=== PATIENT | female | born 1960 | race Caucasian/White ===

== ENCOUNTER → 2019-07-28 | Outpatient (CLI) | payer MEDICAID, SELFPAY | PROVIDERS: Family Provider Family Medicine; Visit Provider Psychiatry & Neurology Child & Adolescent Psychiatry | DX: F33.1 Major depressive disorder, recurrent, moderate (principal); F40.10 Social phobia, unspecified ==

== ENCOUNTER 2019-08-14 14:35 | Outpatient (CLI) | payer MEDICAID, SELFPAY ==
--- NOTE | 2019-08-14 14:47 | MM_ITS ---
WS: [id number] BILATERAL SCREENING DIGITAL MAMMOGRAM WITH CAD HISTORY: SCREENING COMPARISON: 10/25/2012 Bilateral CC and MLO views submitted. Computer aided detection analyzed. Breast composition: The breasts are heterogeneously dense, which may obscure small masses. No suspici ous masses, microcalcifications or architectural distortion. Bilateral scattered calcifications and a symmetries are stable over multiple years. MM/[place] [id number] IMPRESSION: BI-RADS: 2-Benign FOLLOW UP: 1 Year Follow-up
== END 2019-08-14 14:36 | disposition home or self-care (01) ==
LOC: RADSHAW 14:41
DX: Z12.31 Encounter for screening mammogram for malignant neoplasm of breast (principal)
CPT/HCPCS: 77067

== ENCOUNTER → 2019-09-05 11:04 | Outpatient (BNVA) | payer MEDICAID, SELFPAY | PROVIDERS: Visit Provider Nurse Practitioner Psychiatric/Mental Health | DX: F33.1 Major depressive disorder, recurrent, moderate (principal); F41.9 Anxiety disorder, unspecified | CPT/HCPCS: 80307; 99214 ==

== ENCOUNTER → 2019-10-03 10:50 | Outpatient (BNVA) | payer MEDICAID, SELFPAY | PROVIDERS: Visit Provider Nurse Practitioner Psychiatric/Mental Health | DX: F33.1 Major depressive disorder, recurrent, moderate (principal); F41.9 Anxiety disorder, unspecified | CPT/HCPCS: 99213 ==

== ENCOUNTER → 2019-10-13 08:47 | Outpatient (BNVA) | payer MEDICAID, SELFPAY | PROVIDERS: Visit Provider Social Worker Clinical | DX: F41.1 Generalized anxiety disorder (principal); F33.1 Major depressive disorder, recurrent, moderate | CPT/HCPCS: 90834 ==

== ENCOUNTER → 2019-11-03 10:12 | Outpatient (BNVA) | payer MEDICAID, SELFPAY | PROVIDERS: Visit Provider Social Worker Clinical | DX: F33.1 Major depressive disorder, recurrent, moderate (principal); F41.9 Anxiety disorder, unspecified | CPT/HCPCS: 90834 ==

== ENCOUNTER → 2019-11-16 08:36 | Outpatient (BNVA) | payer MEDICAID, SELFPAY | PROVIDERS: Visit Provider Nurse Practitioner Psychiatric/Mental Health | DX: F41.9 Anxiety disorder, unspecified (principal); F33.41 Major depressive disorder, recurrent, in partial remission | CPT/HCPCS: 99212 ==

== ENCOUNTER → 2019-11-30 08:11 | Outpatient (BNVA) | payer MEDICAID, SELFPAY | PROVIDERS: Visit Provider Social Worker Clinical | DX: F33.41 Major depressive disorder, recurrent, in partial remission (principal); F41.9 Anxiety disorder, unspecified | CPT/HCPCS: 90834 ==

== ENCOUNTER → 2019-12-21 08:56 | Outpatient (BNVA) | payer MEDICAID, SELFPAY | PROVIDERS: Visit Provider Social Worker Clinical | DX: F33.41 Major depressive disorder, recurrent, in partial remission (principal); F41.1 Generalized anxiety disorder | CPT/HCPCS: 90834 ==

== ENCOUNTER → 2020-01-08 07:59 | Outpatient (BNVA) | payer MEDICAID, SELFPAY | PROVIDERS: Visit Provider Social Worker Clinical | DX: F33.41 Major depressive disorder, recurrent, in partial remission (principal) | CPT/HCPCS: 90832 ==

== ENCOUNTER → 2020-01-11 07:54 | Outpatient (BNVA) | payer MEDICAID, SELFPAY | PROVIDERS: Visit Provider Nurse Practitioner Psychiatric/Mental Health | DX: F33.41 Major depressive disorder, recurrent, in partial remission (principal); F41.9 Anxiety disorder, unspecified | CPT/HCPCS: 99212 ==

== ENCOUNTER → 2020-01-25 08:02 | Outpatient (BNVA) | payer MEDICAID, SELFPAY | PROVIDERS: Visit Provider Social Worker Clinical | DX: F33.41 Major depressive disorder, recurrent, in partial remission (principal); F41.9 Anxiety disorder, unspecified | CPT/HCPCS: 90834 ==

== ENCOUNTER → 2020-02-08 07:53 | Outpatient (BNVA) | payer MEDICAID, SELFPAY | PROVIDERS: Visit Provider Nurse Practitioner Psychiatric/Mental Health | DX: F33.41 Major depressive disorder, recurrent, in partial remission (principal); F41.9 Anxiety disorder, unspecified | CPT/HCPCS: 99213 ==

== ENCOUNTER → 2020-02-20 08:24 | Outpatient (BNVA) | payer MEDICAID, SELFPAY | PROVIDERS: Visit Provider Social Worker Clinical | DX: F33.1 Major depressive disorder, recurrent, moderate (principal); F41.1 Generalized anxiety disorder; F43.12 Post-traumatic stress disorder, chronic | CPT/HCPCS: 90791 ==

== ENCOUNTER → 2020-03-12 09:27 | Outpatient (BNVA) | payer MEDICAID, SELFPAY | PROVIDERS: Visit Provider Social Worker Clinical | DX: F33.41 Major depressive disorder, recurrent, in partial remission (principal); F41.9 Anxiety disorder, unspecified | CPT/HCPCS: 90834 ==

== ENCOUNTER → 2020-04-04 08:47 | Outpatient (BNVA) | payer MEDICAID, SELFPAY | PROVIDERS: Visit Provider Nurse Practitioner Psychiatric/Mental Health | DX: F33.41 Major depressive disorder, recurrent, in partial remission (principal); F41.9 Anxiety disorder, unspecified | CPT/HCPCS: 99212 ==

== ENCOUNTER → 2020-04-08 09:11 | Outpatient (BNVA) | payer MEDICAID, SELFPAY | PROVIDERS: Visit Provider Social Worker Clinical | DX: F33.41 Major depressive disorder, recurrent, in partial remission (principal); F41.1 Generalized anxiety disorder | CPT/HCPCS: 90834 ==

== ENCOUNTER → 2020-04-29 09:28 | Outpatient (BNVA) | payer MEDICAID, SELFPAY | PROVIDERS: Visit Provider Social Worker Clinical | DX: F33.41 Major depressive disorder, recurrent, in partial remission (principal); F41.9 Anxiety disorder, unspecified | CPT/HCPCS: 90834 ==

== ENCOUNTER → 2020-05-20 08:40 | Outpatient (BNVA) | payer MEDICAID, SELFPAY | PROVIDERS: Visit Provider Social Worker Clinical | DX: F33.1 Major depressive disorder, recurrent, moderate (principal) | CPT/HCPCS: 90834 ==

== ENCOUNTER → 2020-05-30 08:44 | Outpatient (BNVA) | payer MEDICAID, SELFPAY | PROVIDERS: Visit Provider Nurse Practitioner Psychiatric/Mental Health | DX: F33.41 Major depressive disorder, recurrent, in partial remission (principal); F41.1 Generalized anxiety disorder; F33.1 Major depressive disorder, recurrent, moderate | CPT/HCPCS: 99212 ==

== ENCOUNTER → 2020-06-03 08:05 | Outpatient (BNVA) | payer MEDICAID, SELFPAY | PROVIDERS: Visit Provider Social Worker Clinical | DX: F33.1 Major depressive disorder, recurrent, moderate (principal) | CPT/HCPCS: 90834 ==

== ENCOUNTER → 2020-06-17 08:11 | Outpatient (BNVA) | payer MEDICAID, SELFPAY | PROVIDERS: Visit Provider Social Worker Clinical | DX: F33.41 Major depressive disorder, recurrent, in partial remission (principal); F41.9 Anxiety disorder, unspecified; F43.12 Post-traumatic stress disorder, chronic | CPT/HCPCS: 90834 ==

== ENCOUNTER → 2020-07-18 08:24 | Outpatient (BNVA) | payer MEDICAID, SELFPAY | PROVIDERS: Visit Provider Nurse Practitioner Psychiatric/Mental Health | DX: F33.41 Major depressive disorder, recurrent, in partial remission (principal); F41.9 Anxiety disorder, unspecified | CPT/HCPCS: 99212 ==

== ENCOUNTER → 2020-08-20 08:55 | Outpatient (BNVA) | payer MEDICAID, SELFPAY | PROVIDERS: Visit Provider Social Worker Clinical | DX: F33.41 Major depressive disorder, recurrent, in partial remission (principal); F41.9 Anxiety disorder, unspecified | CPT/HCPCS: 90834 ==

== ENCOUNTER → 2020-09-03 09:12 | Outpatient (BNVA) | payer MEDICAID, SELFPAY | PROVIDERS: Visit Provider Social Worker Clinical | DX: F33.41 Major depressive disorder, recurrent, in partial remission (principal); F41.9 Anxiety disorder, unspecified | CPT/HCPCS: 90834 ==

== ENCOUNTER → 2020-09-19 08:20 | Outpatient (BNVA) | payer MEDICAID, SELFPAY | PROVIDERS: Visit Provider Social Worker Clinical | DX: F33.41 Major depressive disorder, recurrent, in partial remission (principal); F41.9 Anxiety disorder, unspecified; F43.12 Post-traumatic stress disorder, chronic | CPT/HCPCS: 90834 ==

== ENCOUNTER → 2020-10-10 08:42 | Outpatient (BNVA) | payer MEDICAID, SELFPAY | PROVIDERS: Visit Provider Nurse Practitioner Psychiatric/Mental Health | DX: F33.41 Major depressive disorder, recurrent, in partial remission (principal); F41.9 Anxiety disorder, unspecified | CPT/HCPCS: 90832 ==

== ENCOUNTER 2020-10-26 13:06 | Emergency (ER) | payer MEDICAID, SELFPAY ==
[2020-10-26 13:16] VITALS: BP 115/82; PULSE 68; RESP 14; TEMP 36.2; O2SAT 95; BMI 28.1
--- NOTE | 2020-10-26 13:28 | XRR_ITS ---
PROCEDURE INFORMATION: Exam: XR Right Hand Exam date and time: 10/26/2020 1:40 PM Age: 59 years old Clinical indication: Injury or trauma; Fall; Blunt trauma (contusions or hematomas); Hand; Right; Additional info: Trauma 5th mc TECHNIQUE: Imaging protocol: XR Right hand. Views: 3 or more views. COMPARISON: No relevant prior studies available. FINDINGS: Bones/joints: Horizontal fracture through the base of the 5th metacarpal. Soft tissues: Normal. XR/XR hand RT min 3V* [id number] IMPRESSION: Horizontal fracture through the base of the 5th metacarpal.
--- NOTE | 2020-10-26 13:28 | W.ED.EXTPRO ---
HPI - Extremity Problem General: Chief complaint: Extremity Injury, Upper Stated complaint: Rt hand injury Time Seen by Provider: 10/26/20 13:24 History of Present Illness: HPI Narrative: Patient fell 2 days ago injuring right hand Complaint: extremity pain Onset (ago): day(s) Pain Consistency: constant Location: right and upper extremity Severity scale (1-10): 3 Quality: aching Radiation: none Relieving factors: immobilization Exacerbating factors: range of motion Associated symptoms: Reports no associated symptoms; Deny chest pain, fever(s) or rash Review of Systems Const: Denies: fever(s), chills or body aches Eyes: Denies: change in vision or blurry vision ENMT: Denies: throat pain or nasal congestion Card: Denies: chest pain or dyspnea on exertion Resp: Denies: dyspnea, productive cough or non-productive cough GI: Denies: abdominal pain, nausea or vomiting Musc: Reports: extremity pain (Right hand after fall) Skin/Breast: Denies: rash Neuro: Denies: headache(s) Psych: Denies: anxiety or depression Florian/Lymph: Denies: easy bruising PFS ED PFSH: Medical History (Updated 04/04/20 @ 16:11 by Jovita Polanco APRN) Anxiety disorder Anxiety disorder Chronic anxiety symptoms; uses Lexapro, PRN Valium, and participates in individual psychotherapy. Major depressive disorder, recurrent, in partial remission Social History (Updated 02/08/20 @ 11:12 by Marguerite Saldivar LPN) Smoking and tobacco status: former smoker Quit status (tobacco): has quit using tobacco Year quit tobacco: 1999 Former quit date comment: 1 PPD for 30 years Second hand smoke exposure: No Current gender identity: Female Physical Exam Const: COMMON NORMALS: no acute distress Extremity: RIGHT UPPER EXTREMITY: Yes hand & digits (Bruising tenderness to middle of fifth metacarpal area) Right hand and digits: Yes ROM exam (Good) and Yes neurovascular exam (Intact) Psych: COMMON NORMALS: mental status grossly normal Course Vital Signs: Vital signs: Vital Signs Temperature 97.1 F L 10/26/20 13:16 Pulse Rate 68 10/26/20 13:16 Respiratory Rate 14 10/26/20 13:16 Blood Pressure 115/82 10/26/20 13:16 Pulse Oximetry 95 10/26/20 13:16 Discharge Plan Discharge Condition: Good Prescriptions: No Action levothyroxine 75 mcg capsule 75 mcg PO DAILY RF: 0 metoprolol succinate 25 mg tablet extended release 24 hr 25 mg PO DAILY RF: 0 cyclobenzaprine 5 mg tablet 5 mg PO TID PRNRF: 0 hydrochlorothiazide 12.5 mg tablet 12.5 mg PO DAILY RF: 0 escitalopram oxalate [Lexapro] 20 mg tablet 20 mg PO DAILY Qty: 30 RF: 2 diazepam 5 mg tablet 5 mg PO BID PRN (Reason: anxiety) Qty: 45 RF: 0 trazodone 50 mg tablet 50 mg PO .QHS PRN (Reason: insomnia) Qty: 30 RF: 1 trazodone 100 mg tablet 200 mg PO .QHS Qty: 60 RF: 1 Coding Level of Care Code ED Overhead Crane Technician for Carolyn Jauregui
--- NOTE | 2020-10-28 11:47 | DCPLANNER ---
gardening manager had message to scheduled a follow up appointment for ortho. gardening manager called the clinic, spoke with Enma, gave clinic patients information. gardening manager was told patients information would be printed and reviewed. Clinic will call patient with appointment information.
--- NOTE | 2020-10-30 07:47 | DCPLANNER ---
Patient has a follow up appointment scheduled for October at 11:[address] Bianchi at ortho. Clinic will call patient with appointment information.
--- NOTE | 2020-12-05 09:37 | DCPLANNER ---
Patient had a follow up appointment scheduled for 10.31.[address] Bianchi at [facility] - patient did attend appointment.
== END 2020-10-26 14:18 | disposition home or self-care (01) ==
PROVIDERS: Emergency Provider Nurse Practitioner Family
DX: M79.641 Pain in right hand (principal); Z87.891 Personal history of nicotine dependence
CPT/HCPCS: 73130; 99283

== ENCOUNTER → 2020-10-31 12:10 | Outpatient (BNVA) | payer MEDICAID, SELFPAY | PROVIDERS: Referring Provider Nurse Practitioner Family; Visit Provider Specialist | DX: S62.316D Displaced fracture of base of fifth metacarpal bone, right hand, subsequent encounter for fracture with routine healing (principal); X58.XXXD Exposure to other specified factors, subsequent encounter | CPT/HCPCS: 73130 ==

== ENCOUNTER 2020-10-31 15:45 | Outpatient (CLI) | payer MEDICAID, SELFPAY | END 2020-10-31 15:46 | disposition home or self-care (01) | LOC: SPT 15:46 | PROVIDERS: Visit Provider Specialist | DX: Z46.89 Encounter for fitting and adjustment of other specified devices (principal); S62.316D Displaced fracture of base of fifth metacarpal bone, right hand, subsequent encounter for fracture with routine healing; X58.XXXD Exposure to other specified factors, subsequent encounter | CPT/HCPCS: 97760; L3984 ==

== ENCOUNTER → 2020-11-05 08:28 | Outpatient (BNVA) | payer MEDICAID, SELFPAY | PROVIDERS: Visit Provider Nurse Practitioner Psychiatric/Mental Health | DX: F33.41 Major depressive disorder, recurrent, in partial remission (principal); F41.9 Anxiety disorder, unspecified; F43.12 Post-traumatic stress disorder, chronic | CPT/HCPCS: 99213 ==

== ENCOUNTER → 2020-11-18 11:29 | Outpatient (BNVA) | payer MEDICAID, SELFPAY | PROVIDERS: Visit Provider Specialist | DX: S62.316A Displaced fracture of base of fifth metacarpal bone, right hand, initial encounter for closed fracture (principal); X58.XXXA Exposure to other specified factors, initial encounter | CPT/HCPCS: 73130 ==

== ENCOUNTER → 2020-11-28 08:24 | Outpatient (BNVA) | payer MEDICAID, SELFPAY | PROVIDERS: Visit Provider Social Worker Clinical | DX: F33.41 Major depressive disorder, recurrent, in partial remission (principal); F41.9 Anxiety disorder, unspecified | CPT/HCPCS: 90834 ==

== ENCOUNTER 2020-12-02 13:55 | Outpatient (CLI) | payer MEDICAID, SELFPAY ==
--- NOTE | 2020-12-02 14:19 | XR_ITS ---
WS: [id number] Exam: XR DEXA axial skeleton* [id number] Date/Time of Exam: 12/02/2020 2:19 PM Reason For Exam: POST MENOPAUSAL DEXA BONE DENSITOMETRY [employer] The L1-L4 bone mineral density measures 1.062 g/cm2. This corresponds to a T score of -1.0 and Z scor e of 0.3. Left femoral neck bone mineral density measures 0.697 g/cm2. This corresponds to T score of -2.5 and Z score of -1.5. Right femoral neck bone mineral density measures 0.748 g/cm2. This corresponds to a T score of -2.1 a nd Z score of -1.1. Mean femoral neck bone mineral density measures 0.723 g/cm2. This corresponds to a T score of -2.3 an d Z score of -1.3 XR/XR DEXA axial skeleton* [id number] IMPRESSION: Bone mineral density lies in the osteoporotic range. Refer to detailed summary .
== END 2020-12-02 13:56 | disposition home or self-care (01) ==
DX: Z78.0 Asymptomatic menopausal state (principal)
CPT/HCPCS: 77080

== ENCOUNTER → 2020-12-09 14:11 | Outpatient (BNVA) | payer MEDICAID, SELFPAY | PROVIDERS: Visit Provider Specialist | DX: S62.346A Nondisplaced fracture of base of fifth metacarpal bone, right hand, initial encounter for closed fracture (principal); X58.XXXA Exposure to other specified factors, initial encounter | CPT/HCPCS: 73130 ==

== ENCOUNTER → 2020-12-24 11:38 | Outpatient (BNVA) | payer MEDICAID, SELFPAY | PROVIDERS: Visit Provider Nurse Practitioner Psychiatric/Mental Health | DX: F33.41 Major depressive disorder, recurrent, in partial remission (principal); F41.9 Anxiety disorder, unspecified; F43.12 Post-traumatic stress disorder, chronic; F10.20 Alcohol dependence, uncomplicated | CPT/HCPCS: 99214 ==

== ENCOUNTER → 2021-01-07 13:32 | Outpatient (BNVA) | payer MEDICAID, SELFPAY | PROVIDERS: Visit Provider Social Worker Clinical | DX: F33.41 Major depressive disorder, recurrent, in partial remission (principal) | CPT/HCPCS: 90834 ==

== ENCOUNTER → 2021-01-21 07:46 | Outpatient (BNVA) | payer MEDICAID, SELFPAY | PROVIDERS: Visit Provider Nurse Practitioner Psychiatric/Mental Health | DX: F33.41 Major depressive disorder, recurrent, in partial remission (principal); F41.9 Anxiety disorder, unspecified; F10.20 Alcohol dependence, uncomplicated; F43.12 Post-traumatic stress disorder, chronic | CPT/HCPCS: 99213 ==

== ENCOUNTER → 2021-02-04 11:43 | Outpatient (BNVA) | payer MEDICAID, SELFPAY | PROVIDERS: Visit Provider Social Worker Clinical | DX: F33.41 Major depressive disorder, recurrent, in partial remission (principal); F43.12 Post-traumatic stress disorder, chronic | CPT/HCPCS: 90834 ==

== ENCOUNTER → 2021-03-20 11:13 | Outpatient (BNVA) | payer MEDICAID, SELFPAY | PROVIDERS: Visit Provider Nurse Practitioner Psychiatric/Mental Health | DX: F33.41 Major depressive disorder, recurrent, in partial remission (principal); F43.12 Post-traumatic stress disorder, chronic | CPT/HCPCS: 99213 ==

== ENCOUNTER → 2021-03-24 11:40 | Outpatient (BNVA) | payer MEDICAID, SELFPAY | PROVIDERS: Visit Provider Social Worker Clinical | DX: F33.41 Major depressive disorder, recurrent, in partial remission (principal); F43.12 Post-traumatic stress disorder, chronic | CPT/HCPCS: 90834 ==

== ENCOUNTER → 2021-04-28 10:45 | Outpatient (BNVA) | payer MEDICAID, SELFPAY | PROVIDERS: Visit Provider Social Worker Clinical | DX: F33.41 Major depressive disorder, recurrent, in partial remission (principal); F43.12 Post-traumatic stress disorder, chronic | CPT/HCPCS: 90834 ==

== ENCOUNTER 2021-05-12 09:23 | Outpatient (CLI) | payer MEDICAID, SELFPAY ==
--- NOTE | 2021-05-12 09:29 | US_ITS ---
WS: [id number] ULTRASOUND SOFT TISSUES abdominal wall. HISTORY: RUQ PAIN COMPARISON: None available. TECHNIQUE: 2-D and color Doppler imaging is submitted. Ultrasound is directed to the area of pain in the epigastric area. There is herniation of GI tract t hrough a defect in the abdominal wall in the epigastric region. Defect in the abdominal wall is 2.6 c m there are peristalsing loops of GI tract extending through the abdominal wall musculature. There is no evidence for ischemia by ultrasound. No adjacent fluid. US/US abdomen limited [id number] IMPRESSION: Abdominal wall hernia containing a loop of peristalsing GI tract. No ischemic c hanges identified.
== END 2021-05-12 09:24 | disposition home or self-care (01) ==
LOC: US 09:26
PROVIDERS: PCP Nurse Practitioner Family; Visit Provider Nurse Practitioner Family
DX: R10.11 Right upper quadrant pain (principal); K43.9 Ventral hernia without obstruction or gangrene
CPT/HCPCS: 76705

== ENCOUNTER → 2021-05-22 11:42 | Outpatient (BNVA) | payer MEDICAID, SELFPAY | PROVIDERS: PCP Nurse Practitioner Family; Visit Provider Social Worker Clinical | DX: F33.41 Major depressive disorder, recurrent, in partial remission (principal); F43.12 Post-traumatic stress disorder, chronic; F90.2 Attention-deficit hyperactivity disorder, combined type | CPT/HCPCS: 90834 ==

== ENCOUNTER → 2021-06-03 11:41 | Outpatient (BNVA) | payer MEDICAID, SELFPAY | PROVIDERS: PCP Nurse Practitioner Family; Visit Provider Social Worker Clinical | DX: F33.0 Major depressive disorder, recurrent, mild (principal) | CPT/HCPCS: 90834 ==

== ENCOUNTER → 2021-06-06 14:01 | Outpatient (BNVA) | payer MEDICAID, SELFPAY | PROVIDERS: PCP Nurse Practitioner Family; Visit Provider Surgery | DX: Z11.52 Encounter for screening for COVID-19 (principal); Z20.822 Contact with and (suspected) exposure to COVID-19 | CPT/HCPCS: 87635 ==

== ENCOUNTER 2021-06-08 04:24 | Emergency (ER) | payer MEDICAID, SELFPAY ==
[2021-06-08 04:33] VITALS: BP 125/78; PULSE 62; RESP 18; TEMP 36.7; O2SAT 96
--- NOTE | 2021-06-08 04:39 | ED_ITS ---
HPI - Extremity Problem General: Chief complaint: Extremity Problem,Nontraumatic Stated complaint: Knee Pain Time Seen by Provider: 06/08/21 04:33 History of Present Illness: HPI Narrative: 60-year-old female complaining of right knee pain. She states that she broke her knee in the late 90s, and has had pain on and off since that time. She had a cortisone shot last year which seemed to help some. This morning she awoke with increased pain to the knee, an d could not find a comfortable position in bed. She presents for evaluation. She denies instability. She has had locking. No fever warmth or redness. No calf or thigh pain. MD Complaint: joint pain Onset (ago): hour(s) Pain Consistency: constant Location: right and knee Quality: stabbing and aching Radiation: none Relieving factors: nothing Exacerbating factors: range of motion and weight bearing Associated symptoms: Deny arthralgias, chest pain, fever(s), rash or short of breath Review of Systems Const: Denies: fever(s) Card: Denies: chest pain Skin/Breast: Denies: rash PFSH ED PFSH: Medical History (Updated 06/08/21 @ 05:28 by Tonio Mcneil DO) Anxiety disorder Chronic anxiety symptoms; uses Lexapro, PRN Valium, and participates in individual psychotherapy. Hypertension Major depressive disorder, recurrent, in partial remission Surgical History (Updated 06/11/21 @ 08:26 by Gm Marrero MD) H/O tubal ligation History of ankle surgery Left History of delivery S/P repair of ventral hernia (06/11/21) Status post colonoscopy (06/10/21) Social History Smoking and tobacco status: former smoker Quit status (tobacco): has quit using tobacco Year quit tobacco: 1999 Former quit date comment: 1 PPD for 30 years Second hand smoke exposure: No Current gender identity: Female Physical Exam Const: COMMON NORMALS: no acute distress, patient oriented x3 and alert GENERAL APPEARANCE: cooperative HENMT: COMMON NORMALS: normocephalic HEAD & SCALP: normocephalic Eye: COMMON NORMALS: Equal, round and reactive pupils present and EOMs intact bilaterally PUPIL: Yes Equal, round and reactive pupils present Chest: COMMONS NORMALS: normal inspection of the chest Resp: COMMON NORMALS: normal respiratory effort and No use of accessory muscles Extremity: NARRATIVE EXTREMITY EXAM: Examination of the right lower extremity reveals no edema. There is no knee joint effusion. 2 degrees of extension lag. 100 degrees of flexion. She is tender in the medial joint line and with patellar compression. No deformity. The knee is not warm. Neuro: COMMON NORMALS: patient oriented x3 SENSORIUM/ORIENTATION: Yes alert Course Vital Signs: Vital signs: Vital Signs Temperature 98.1 F 06/08/21 04:33 Pulse Rate 67 06/08/21 05:41 Respiratory Rate 18 06/08/21 05:41 Blood Pressure 115/80 06/08/21 05:41 Pulse Oximetry 96 06/08/21 05:41 MDM - Extremity (Nontraumatic) MDM Narrative: Medical decision making narrative: 60-year-old female with right knee pain. There is no warmth. There is no knee effusion. X-ray reveals osteoarthritic change. No evidence of lower extremity swelling or tenderness otherwise to suspect thrombosis Discharge Plan Discharge Patient Disposition: Home Clinical Impression: Osteoarthritis of right knee Qualifiers: Osteoarthritis type: post-traumatic Qualified Code(s): M17.31 - Unilateral post-traumatic osteoarthritis, right knee Condition: Stable Prescriptions: No Action levothyroxine 75 mcg capsule 75 mcg PO DAILY RF: 0 (DME) Fast Form ulnar gutter See Rx Instructions .ROUTE .MEDSUPPLY Qty: 1 RF: 0 escitalopram oxalate [Lexapro] 20 mg tablet 20 mg PO DAILY Qty: 30 RF: 1 trazodone 100 mg tablet 200 mg PO .QHS PRN (Reason: insomnia) Qty: 60 RF: 1 trazodone 50 mg tablet 50 mg PO .QHS PRN (Reason: insomnia) Qty: 30 RF: 1 metoprolol succinate 25 mg tablet extended release 24 hr 25 mg PO DAILY RF: 0 alendronate 70 mg tablet 70 mg PO DIRECTED RF: 0 famotidine 20 mg tablet 20 mg PO DAILY PRN (Reason: Heartburn) RF: 0 ergocalciferol (vitamin D2) [Vitamin D2] 1,250 mcg (50,000 unit) Capsule 1,250 mcg PO DIRECTED RF: 0 hydrocodone-acetaminophen 5-325 mg tablet 1 tab PO Q6H PRN (Reason: pain) Qty: 20 RF: 0 Zofran 4 mg tablet 4 mg PO Q6H PRN (Reason: nausea and vomiting) Qty: 20 RF: 0 Colace 100 mg capsule 100 mg PO BID Qty: 30 RF: 0 Discharge Orders: Discharge ED (Routine); Ordered 06/08/21 Ordered By: Tonio Mcneil Referrals: Juana Garcia, SWITCHBOARD RECEPTIONIST [Primary Care Provider] - 4-7 days Patient Instructions: Osteoarthritis (ED) Activity Restrictions/Additional Instructions: Return for fever greater than 100, increasing swelling, redness, pain to the knee despite treatment. Return also for any shortness of breath or chest discomfort, or any other concerning symptoms. Follow-up with your doctor later this week. Coding Level of Care Code ED Wastewater Treatment Plant Supervisor for Carolyn Fwd Exam Detailed
--- NOTE | 2021-06-08 04:42 | XRR_ITS ---
PROCEDURE INFORMATION: Exam: XR Right Knee Exam date and time: 06/08/2021 4:42 AM Age: 60 years old Clinical indication: Pain; Knee; Right; Additional info: R knee pain TECHNIQUE: Imaging protocol: XR Right knee. Views: 3 views. COMPARISON: No relevant prior studies available. FINDINGS: Bones/joints: Mild to moderate primary tricompartmental osteoarthritis. Soft tissues: Normal. XR/XR knee RT 3V* [id number] IMPRESSION: Mild to moderate primary tricompartmental osteoarthritis. Radiation Dose CTDIVOL = (mGy): DLP = (mGy-cm)
[2021-06-08 04:49] VITALS: PULSE 78
[2021-06-08] MEDS: ketorolac 10 mg Tablet PO (04:54)
[2021-06-08 04:55] VITALS: RESP 16; O2SAT 99
[2021-06-08] MEDS: oxyCODONE-APAP 5-325 mg Tablet 1 TAB PO (04:55)
[2021-06-08 05:41] VITALS: BP 115/80; PULSE 67; RESP 18; O2SAT 96
== END 2021-06-08 05:42 | disposition home or self-care (01) ==
PROVIDERS: Emergency Provider Emergency Medicine; PCP Nurse Practitioner Family
DX: M17.31 Unilateral post-traumatic osteoarthritis, right knee (principal); Z87.891 Personal history of nicotine dependence; I10 Essential (primary) hypertension
CPT/HCPCS: 73562; 99283

== ENCOUNTER 2021-06-10 07:33 | Day surgery (SDC) | payer MEDICAID, SELFPAY ==
[2021-06-09 10:55] VITALS: BMI 27.3
--- NOTE | 2021-06-10 07:44 | ANES.PREANE2 ---
Pre-Anesthetic Assessment Pre-Anesthetic Assessment: Height/Weight: Height 1.55 m Weight 65.771 kg Preop Diagnosis: screening Proposed Procedure: Operation Date: 06/10/21 09:15 Proposed Procedures p Colonoscopy 38213 Z12.11(Not Applicable) - Gm Marrero MD Familial anesthetic complications: none Was Beta Christopher taken within 24 hours: Yes Was Clonidine taken within 24 hours: N/A Last intake: > 8hrs Social: Social History: No alcohol and No tobacco Exam: Pre-Anes Outpt Exam: alert, oriented x 3, clear to auscultation bilaterally and regular rate & rhythm Airway: Cervical ROM: WNL MP: 2 Dentition: Other (missing teeth) CV/HEM: CV/HEM: HTN GI: GI: GERD Metabolic: Metabolic: Thyroid Anesthetic Plan: ASA status: 2 Anesthesia: MAC Risk of > 500 ml blood loss (7ml/kg in children): No PFSH Anesthesia PFSH: Medical History (Updated 06/08/21 @ 05:28 by Tonio Mcneil DO) Anxiety disorder Chronic anxiety symptoms; uses Lexapro, PRN Valium, and participates in individual psychotherapy. Hypertension Major depressive disorder, recurrent, in partial remission Surgical History (Updated 06/06/21 @ 13:54 by Gm Marrero MD) H/O tubal ligation History of ankle surgery Left History of delivery Status post colonoscopy Social History Smoking and tobacco status: former smoker Quit status (tobacco): has quit using tobacco Year quit tobacco: 1999 Former quit date comment: 1 PPD for 30 years Second hand smoke exposure: No Current gender identity: Female Data Anesthesia Cardiac Studies: No Data to Display
--- NOTE | 2021-06-10 07:59 | W.PM.OPSUD ---
Surgery/Procedure H&P Update DATE OF PROCEDURE: June 10, 2021 DATE H&P PERFORMED: 06/06/21 H&P UPDATE INFORMATION: I have reviewed H&P completed within last 30 days, I have examined patient prior to procedure and No changes to prior documentation PREOP DIAGNOSIS: screening PLANNED PROCEDURE: Operation Date: 06/10/21 09:15 Proposed Procedures p Colonoscopy 72706 Z12.11(Not Applicable) - Gm Marrero MD
[2021-06-10 08:10] VITALS: BP 134/93; PULSE 88; RESP 18; TEMP 36.1; O2SAT 95
[2021-06-10] MEDS: sodium chloride 0.9% 1,000 ML 30 ML IV (08:22)
[2021-06-10 12:28] VITALS: BP 127/88; PULSE 61; RESP 18; TEMP 37.1; O2SAT 96
[2021-06-10 12:39] VITALS: BP 135/90; PULSE 58; RESP 18; O2SAT 97
== END 2021-06-10 13:00 | disposition home or self-care (01) ==
PROVIDERS: PCP Nurse Practitioner Family; Visit Provider Surgery
PROC: 0DJD8ZZ Inspection of Lower Intestinal Tract, Via Natural or Artificial Opening Endoscopic (ICD-10-PCS; CPT 45378; principal; 2021-06-10 09:15)
DX: Z12.11 Encounter for screening for malignant neoplasm of colon (principal); K57.30 Diverticulosis of large intestine without perforation or abscess without bleeding; K64.8 Other hemorrhoids; D12.3 Benign neoplasm of transverse colon; I10 Essential (primary) hypertension; Z87.891 Personal history of nicotine dependence; K43.6 Other and unspecified ventral hernia with obstruction, without gangrene
CPT/HCPCS: 45380; 88305; 96360; 96361; J7030

== ENCOUNTER 2021-06-11 07:36 | Day surgery (SDC) | payer MEDICAID, SELFPAY ==
[2021-06-10 15:00] VITALS: BMI 27.6
[2021-06-11] VITALS (13 sets, daily range): BP systolic 87–125; BP diastolic 47–92; PULSE 58–71; RESP 12–20; TEMP 36.1–36.4; O2SAT 90–97
--- NOTE | 2021-06-11 08:00 | W.PM.OPSUD ---
Surgery/Procedure H&P Update DATE OF PROCEDURE: June 11, 2021 DATE H&P PERFORMED: 06/06/21 H&P UPDATE INFORMATION: I have reviewed H&P completed within last 30 days, I have examined patient prior to procedure and No changes to prior documentation PREOP DIAGNOSIS: Ventral hernia PLANNED PROCEDURE: Operation Date: 06/11/21 09:20 Proposed Procedures p Laparoscopic Poss Open Ventral Hernia Repair 35866 K43.9(Not Applicable) - Gm Marrero MD
--- NOTE | 2021-06-11 08:30 | ANES.PREANE2 ---
Pre-Anesthetic Assessment Pre-Anesthetic Assessment: Height/Weight: Height 1.55 m Weight 66.224 kg Temp Pulse Resp BP Pulse Ox 97.5 F L 71 16 125/92 96 06/11/21 08:26 06/11/21 08:26 06/11/21 08:26 06/11/21 08:26 06/11/21 08:26 Preop Diagnosis: Ventral hernia Proposed Procedure: Operation Date: 06/11/21 09:20 Proposed Procedures p Laparoscopic Poss Open Ventral Hernia Repair 36370 K43.9(Not Applicable) - Gm Marrero MD Was Beta Christopher taken within 24 hours: Yes Was Clonidine taken within 24 hours: N/A Last intake: Intake Last Liquid Date 06/10/21 Last Liquid Time 21:00 Last Solid Date 06/10/21 Last Solid Time 19:00 Social: Social History: No alcohol and No tobacco Exam: Pre-Anes Outpt Exam: alert, oriented x 3, clear to auscultation bilaterally and regular rate & rhythm Airway: Submandibular: WNL Cervical ROM: WNL MP: 1 History/ROS: No significant complaints Pulmonary: Pulmonary: None reported CV/HEM: CV/HEM: None reported : : None reported Hepatic: Hepatic: None reported GI: GI: None reported Metabolic: Metabolic: None reported Musc/skel: Musc/skel: None reported Neuropsych: Neuropsych: Anxiety Anesthetic Plan: ASA status: 2 Anesthesia: General Risk of > 500 ml blood loss (7ml/kg in children): No PFSH Anesthesia PFSH: Medical History (Updated 06/08/21 @ 05:28 by Tonio Mcneil DO) Anxiety disorder Chronic anxiety symptoms; uses Lexapro, PRN Valium, and participates in individual psychotherapy. Hypertension Major depressive disorder, recurrent, in partial remission Surgical History (Updated 06/11/21 @ 08:26 by Gm Marrero MD) H/O tubal ligation History of ankle surgery Left History of delivery S/P repair of ventral hernia (06/11/21) Status post colonoscopy (06/10/21) Social History Smoking and tobacco status: former smoker Quit status (tobacco): has quit using tobacco Year quit tobacco: 1999 Former quit date comment: 1 PPD for 30 years Second hand smoke exposure: No Current gender identity: Female Data Anesthesia Cardiac Studies: No Data to Display
[2021-06-11] MEDS: sodium chloride 0.9% 1,000 ML 30 ML IV (08:46)
--- NOTE | 2021-06-11 10:55 | P.OP_ITS ---
Operative Report Date of procedure: June 11, 2021 Pre-op Diagnosis: 1. Incarcerated ventral hernia measuring 3 x 2 cm Post-op Diagnosis: 1. Incarcerated ventral hernia measuring 3 x 3 cm 2. 1 x 1 cm umbilical hernia Procedure Done: Laparoscopic repair of incarcerated ventral hernia and umbilical hernia using Proceed mesh measuring 15 x 10 cm Pathology: none sent Surgeon: Gm Marrero Anesthesia: General Condition: stable Disposition: PACU Procedure: The patient was taken to the Operating Room and was intubated under general anesthesia after the antibiotic had been administered. The abdomen was prepped and draped in a sterile manner. Using a 15 blade, a 2-cm incision was made in the left upper quadrant in the anterior axillary line and pneumoperitoneum was created using Verres needle. A 10 mm Rain port was placed and 15 mm of pneumoperitoneum was created after a 10 mm 30? scope had been introduced. 5 mm port was placed at the level of the umbilicus and in the right lower quadrant under direct visualization. Using a combination of electrocautery and scissors the peritoneum in the midline was taken down and the omental fat within the ventral hernial sac was reduced. The falciform ligament was divided superiorly and there was a small 1 x 1 cm umbilical hernia noted. A spinal needle was introduced through the abdominal wall and the edges of the hernial defect were marked and measured 3 x 2 cm. A 5 cm margin was marked on the abdominal wall on the outer edge of the hernial defect. 15 x 10 cm Proceed mesh was selected and 4 separate 2-0 [place]-Timothy sutures were placed at the 4 corners of the mesh. Grannie needle was passed through the stab incisions and used to grasp the free ends of the [place]Timothy sutures which were then used to pull the mesh up against the abdominal wall; 5 mm SecurStraps were placed 1 cm apart along the edge of the mesh to hold it against the abdominal wall. At the end of this, it was noted that the mesh was well positioned over the hernial defect. 20 cc of saline mixed with 20cc of Exparel mixed with 20cc of 0.5% Marcaine was infiltrated in the midclavicular line under laparoscopic visualization for a TAP block. All ports were removed under direct visualization and there was no bleeding noted from the port sites. The external oblique aponeurosis was approximated at this port site using figure of eight 0 Vicryl suture. The subcutaneous tissue was approximated using 3-0 Vicryl sutures. The skin at all 3 port sites was closed using subcuticular 4-0 Monocryl suture. The stab incisions and the port sites were covered with Dermabond. Abdominal binder was placed at the end of the procedure and the patient was extubated and transferred to recovery room in stable condition.
[2021-06-11] MEDS: ketorolac 30 mg/mL INJ IVP (11:10)
[2021-06-11] MEDS: ondansetron 2 mg/ML SDV 2 mL 4 MG IVP (11:10)
[2021-06-11] MEDS: fentaNYL 50 mcg/mL INJ 2mL IVP ×2 (11:20→11:30)
[2021-06-11] MEDS: HYDROcodone-acetaminophen 5-325 mg Tablet 1 TAB PO (12:30)
--- NOTE | 2021-06-11 14:55 | P.ANESPOST_ITS ---
Inpatient post-anesthesia follow up: Airway intact: Yes Vital signs: Temperature 97 F Pulse Rate 61 Respiratory Rate 16 Blood Pressure 95/72 Pulse Oximetry 92 Oxygen Delivery Me thod Room Air Oxygen Flow Rate 2 Fraction of Inspir ed Oxygen Hydration adequate: Yes Nausea and vomiting: No Pain level: 1 Mental status: Baseline Additional Comments: patient shaking mildly, patient had concerns that she was still shaking. Informed her this is common after surgery/anestehsia. Asked if she felt unsteady or if she felt it would interefere wtih any necessary activities. She stated no. She and her felt safe to leave. Informed if symptoms worsen or she becomes distressed she c an or should return to ER
== END 2021-06-11 12:27 | disposition home or self-care (01) ==
PROVIDERS: PCP Nurse Practitioner Family; Visit Provider Surgery
PROC: 0WQF4ZZ Repair Abdominal Wall, Percutaneous Endoscopic Approach (ICD-10-PCS; CPT 49653; principal; 2021-06-11 09:20)
DX: K43.6 Other and unspecified ventral hernia with obstruction, without gangrene (principal); I10 Essential (primary) hypertension; Z87.891 Personal history of nicotine dependence
CPT/HCPCS: 49653; 96365; C9290; J0330; J0690; J1100; J1885; J2370; J2405; J2710; J3010; J3490; J7030

== ENCOUNTER → 2021-06-12 08:06 | Outpatient (BNVA) | payer MEDICAID, SELFPAY | PROVIDERS: Visit Provider Nurse Practitioner Psychiatric/Mental Health | DX: F33.41 Major depressive disorder, recurrent, in partial remission (principal); F43.12 Post-traumatic stress disorder, chronic | CPT/HCPCS: 99214 ==

== ENCOUNTER → 2021-06-25 11:50 | Outpatient (BNVA) | payer MEDICAID, SELFPAY | PROVIDERS: Visit Provider Social Worker Clinical | DX: F33.41 Major depressive disorder, recurrent, in partial remission (principal); F43.12 Post-traumatic stress disorder, chronic; F90.2 Attention-deficit hyperactivity disorder, combined type | CPT/HCPCS: 90834 ==

== ENCOUNTER → 2021-08-05 11:06 | Outpatient (BNVA) | payer MEDICAID, SELFPAY | PROVIDERS: Visit Provider Nurse Practitioner Psychiatric/Mental Health | DX: F33.41 Major depressive disorder, recurrent, in partial remission (principal); F43.12 Post-traumatic stress disorder, chronic; S62.316A Displaced fracture of base of fifth metacarpal bone, right hand, initial encounter for closed fracture | CPT/HCPCS: 99214 ==

== ENCOUNTER → 2021-08-19 10:47 | Outpatient (BNVA) | payer MEDICAID, SELFPAY | PROVIDERS: Visit Provider Social Worker Clinical | DX: F33.41 Major depressive disorder, recurrent, in partial remission (principal); F43.12 Post-traumatic stress disorder, chronic | CPT/HCPCS: 90834 ==

== ENCOUNTER → 2021-09-02 10:00 | Outpatient (BNVA) | payer MEDICAID, SELFPAY | PROVIDERS: Visit Provider Social Worker Clinical | DX: F33.41 Major depressive disorder, recurrent, in partial remission (principal); F43.12 Post-traumatic stress disorder, chronic | CPT/HCPCS: 90834 ==

== ENCOUNTER → 2021-09-22 08:42 | Outpatient (BNVA) | payer MEDICAID, SELFPAY | PROVIDERS: Visit Provider Social Worker Clinical | DX: F33.41 Major depressive disorder, recurrent, in partial remission (principal); F43.12 Post-traumatic stress disorder, chronic | CPT/HCPCS: 90834 ==

== ENCOUNTER → 2021-09-30 07:42 | Outpatient (BNVA) | payer MEDICAID, SELFPAY | PROVIDERS: Visit Provider Nurse Practitioner Psychiatric/Mental Health | DX: F33.41 Major depressive disorder, recurrent, in partial remission (principal); F43.12 Post-traumatic stress disorder, chronic; S62.316A Displaced fracture of base of fifth metacarpal bone, right hand, initial encounter for closed fracture | CPT/HCPCS: 99213 ==

== ENCOUNTER → 2021-10-06 10:01 | Outpatient (BNVA) | payer MEDICAID, SELFPAY | PROVIDERS: Visit Provider Social Worker Clinical | DX: F33.41 Major depressive disorder, recurrent, in partial remission (principal); F43.12 Post-traumatic stress disorder, chronic | CPT/HCPCS: 90834 ==

== ENCOUNTER → 2021-10-20 08:13 | Outpatient (BNVA) | payer MEDICAID, SELFPAY | PROVIDERS: Visit Provider Social Worker Clinical | DX: F33.41 Major depressive disorder, recurrent, in partial remission (principal); F43.12 Post-traumatic stress disorder, chronic | CPT/HCPCS: 90834 ==

== ENCOUNTER → 2021-11-04 07:35 | Outpatient (BNVA) | payer MEDICAID, SELFPAY | PROVIDERS: Visit Provider Nurse Practitioner Psychiatric/Mental Health | DX: F33.41 Major depressive disorder, recurrent, in partial remission (principal); F43.12 Post-traumatic stress disorder, chronic | CPT/HCPCS: 99213 ==

== ENCOUNTER → 2021-11-06 11:00 | Outpatient (BNVA) | payer MEDICAID, SELFPAY | PROVIDERS: Visit Provider Social Worker Clinical | DX: F33.41 Major depressive disorder, recurrent, in partial remission (principal); F43.12 Post-traumatic stress disorder, chronic | CPT/HCPCS: 90834 ==

== ENCOUNTER → 2021-12-04 10:35 | Outpatient (BNVA) | payer MEDICAID, SELFPAY | PROVIDERS: Visit Provider Social Worker Clinical | DX: F33.41 Major depressive disorder, recurrent, in partial remission (principal); F43.12 Post-traumatic stress disorder, chronic | CPT/HCPCS: 90834 ==

== ENCOUNTER → 2021-12-22 09:13 | Outpatient (BNVA) | payer MEDICAID, SELFPAY | PROVIDERS: Visit Provider Social Worker Clinical | DX: F33.41 Major depressive disorder, recurrent, in partial remission (principal); F43.12 Post-traumatic stress disorder, chronic | CPT/HCPCS: 90834 ==

== ENCOUNTER → 2022-01-08 07:30 | Outpatient (BNVA) | payer MEDICAID, SELFPAY | PROVIDERS: Visit Provider Social Worker Clinical | DX: F33.41 Major depressive disorder, recurrent, in partial remission (principal); F43.12 Post-traumatic stress disorder, chronic | CPT/HCPCS: 90834 ==

== ENCOUNTER → 2022-01-27 10:42 | Outpatient (BNVA) | payer MEDICAID, SELFPAY | PROVIDERS: Visit Provider Nurse Practitioner Psychiatric/Mental Health | DX: F33.41 Major depressive disorder, recurrent, in partial remission (principal); F41.9 Anxiety disorder, unspecified; S62.316A Displaced fracture of base of fifth metacarpal bone, right hand, initial encounter for closed fracture | CPT/HCPCS: 99213 ==

== ENCOUNTER → 2022-01-29 08:50 | Outpatient (BNVA) | payer MEDICAID, SELFPAY | PROVIDERS: Visit Provider Social Worker Clinical | DX: F33.41 Major depressive disorder, recurrent, in partial remission (principal); F43.12 Post-traumatic stress disorder, chronic | CPT/HCPCS: 90834 ==

== ENCOUNTER → 2022-05-05 11:38 | Outpatient (BNVA) | payer MEDICAID, SELFPAY | PROVIDERS: Visit Provider Family Medicine Adult Medicine | DX: R39.9 Unspecified symptoms and signs involving the genitourinary system (principal) | CPT/HCPCS: 81000 ==

== ENCOUNTER → 2022-11-06 13:54 | Outpatient (BNVA) | payer MEDICAID, SELFPAY | PROVIDERS: PCP Family Medicine; Visit Provider Family Medicine | DX: E03.9 Hypothyroidism, unspecified (principal) | CPT/HCPCS: 80053; 80061; 84439; 84443; 85025 ==

== ENCOUNTER 2022-11-23 11:18 | Outpatient (CLI) | payer MEDICAID, SELFPAY ==
--- NOTE | 2022-11-23 11:29 | MM_ITS ---
WS: [id number] Bilateral screening 3D tomosynthesis digital mammogram, 11/23/2022 Clinical Data: SCREENING Comparison: 08/14/2019, 10/25/2012. Findings: The breast parenchymal pattern shows heterogeneous density. No spiculated masses or clustered calcifi cations are seen. There are no secondary signs of carcinoma. There are small lymph nodes in both axil la. MM/[place] [id number] Impression: 1. Negative bilateral mammogram unchanged. 2. Recommend annual screening mammograms. BIRADS: 1-Negative FOLLOW UP: 1 Year Follow-up The CAD wash test checker was used.
== END 2022-11-23 11:19 | disposition home or self-care (01) ==
LOC: RAD 11:21
PROVIDERS: PCP Family Medicine; Visit Provider Family Medicine
DX: Z12.31 Encounter for screening mammogram for malignant neoplasm of breast (principal)
CPT/HCPCS: 77063; 77067

== ENCOUNTER → 2022-12-08 08:56 | Outpatient (BNVA) | payer MEDICAID, SELFPAY | PROVIDERS: PCP Family Medicine; Referring Provider Family Medicine; Visit Provider Nurse Practitioner Family | DX: D48.5 Neoplasm of uncertain behavior of skin (principal); L65.0 Telogen effluvium; L57.0 Actinic keratosis; D22.5 Melanocytic nevi of trunk; L81.4 Other melanin hyperpigmentation; Z71.89 Other specified counseling; L85.3 Xerosis cutis; L57.8 Other skin changes due to chronic exposure to nonionizing radiation | CPT/HCPCS: 17000; 17003; 99204 ==

== ENCOUNTER 2022-12-14 13:36 | Outpatient (CLI) | payer MEDICAID, SELFPAY ==
--- NOTE | 2022-12-14 13:30 | XR_ITS ---
WS: [id number] SCREENING DEXA SCAN [employer] CLINICAL INFORMATION: M81.0 - Age-related osteoporosis without current patholog... COMPARISON: December 02, 2020 FINDINGS: The L1-L4 bone mineral density measures 1.072 g/cm2. This corresponds to a T score score of -0.9 and Z score of 0.4. Left femoral neck bone mineral density measures 0.702 g/cm2. This corresponds to a T score of -2.4 an d Z score of -1.4. Right femoral neck bone mineral density measures 0.754 g/cm2. This corresponds to a T score -2.0of an d Z score of -1.0. Mean femoral neck bone mineral density measures 0.728 g/cm2. This corresponds to a T score of -2.2 an d Z score of -1.2. XR/XR DEXA axial skeleton* [id number] IMPRESSION: Normal bone mineralization lumbar spine at the upper end of the range. Osteopen ia femoral necks approaching osteoporosis. Patient's FRAX calculated 10 year probability for major osteoporotic fracture i s 25.4 % and osteoporotic hip fracture is 7.4%. Bone mineral density in the lumbar spine has increased 0.9% since 2020. Bone mineral density in the femoral necks has increased 0.7% since 2020.
== END 2022-12-14 13:37 | disposition home or self-care (01) ==
LOC: RAD 13:38
PROVIDERS: PCP Family Medicine; Visit Provider Nurse Practitioner Women's Health
DX: M81.0 Age-related osteoporosis without current pathological fracture (principal); Z78.0 Asymptomatic menopausal state
CPT/HCPCS: 77080; 87624

== ENCOUNTER → 2023-03-04 11:25 | Outpatient (BNVA) | payer MEDICAID, SELFPAY | PROVIDERS: PCP Family Medicine; Visit Provider Internal Medicine Rheumatology | DX: M54.2 Cervicalgia (principal); M47.812 Spondylosis without myelopathy or radiculopathy, cervical region | CPT/HCPCS: 72040; 99204 ==

== ENCOUNTER → 2023-08-04 11:27 | Outpatient (BNVA) | payer MEDICAID, SELFPAY | PROVIDERS: PCP Family Medicine; Visit Provider Family Medicine | DX: M54.50 Low back pain, unspecified (principal); E03.9 Hypothyroidism, unspecified; E78.5 Hyperlipidemia, unspecified; F33.41 Major depressive disorder, recurrent, in partial remission; F43.12 Post-traumatic stress disorder, chronic; F41.9 Anxiety disorder, unspecified | CPT/HCPCS: 80053; 80061; 82306; 84439; 84443; 85025 ==

== ENCOUNTER → 2023-09-02 09:27 | Outpatient (BNVA) | payer MEDICAID, SELFPAY | PROVIDERS: PCP Family Medicine; Visit Provider Nurse Practitioner Family | DX: L63.8 Other alopecia areata (principal); L57.0 Actinic keratosis; L81.4 Other melanin hyperpigmentation; D22.5 Melanocytic nevi of trunk; L85.3 Xerosis cutis | CPT/HCPCS: 11900; 17000; 99213; J3301 ==

== ENCOUNTER 2023-09-14 10:21 | Emergency (ER) | payer MEDICAID, SELFPAY ==
--- NOTE | 2023-09-14 | XRR_ITS ---
PROCEDURE INFORMATION: Exam: XR Lumbosacral Spine Exam date and time: 09/14/2023 10:41 AM Age: 62 years old Clinical indication: Low back pain; Patient HX: HX of endometrial cancer TECHNIQUE: Imaging protocol: Radiologic exam of the lumbosacral spine. Views: 2 or 3 views. COMPARISON: CT lumbar spine wo con* [id number] 01/08/2019 3:10 AM FINDINGS: Bones/joints: No acute fracture or malalignment. Unchanged superior endplate depression of L1 likely Schmorl's node. Extensive multilevel spondylosis and facet arthropathy which has mildly progressed from prior comparison January 2019. Soft tissues: No acute findings. Vascular calcifications. XR/XR lumbar spine 2-3V* [id number] IMPRESSION: Mild progression of extensive multilevel degenerative changes from January 2019 comparison.
--- NOTE | 2023-09-14 10:21 | XR_ITS ---
WS: [id number] XR hip RT 2-3V wo/w pel* [id number] REASON FOR EXAM: pain FINDINGS: No fracture or focal bone lesion. Mild narrowing of the joint space with mild subchondral sclerosis of the acetabulum. No soft tissue abnormality. IMPRESSION: No acute abnormality. Mild osteoarthritis of the right hip.
[2023-09-14 10:24] VITALS: BP 122/79; PULSE 60; RESP 14; TEMP 36.5; O2SAT 97; BMI 29.0
--- NOTE | 2023-09-14 10:36 | CTR_ITS ---
PROCEDURE INFORMATION: Exam: CT Lumbar Spine Without Contrast Exam date and time: 09/14/2023 11:08 AM Age: 62 years old Clinical indication: Other: Right side low back pain TECHNIQUE: Imaging protocol: Computed tomography of the lumbar spine without contrast. Radiation optimization: All CT scans at this facility use at least one of these dose optimization techniques: automated exposure control; mA and/or kV adjustment per patient size (includes targeted exams where dose is matched to clinical indication); or iterative reconstruction. COMPARISON: CR XR lumbar spine 2-3V* [id number] 09/14/2023 10:41 AM RADIATION DOSE METRICS: Total DLP (mGy-cm): 772.25 FINDINGS: Bones/joints: No acute fracture or malalignment. Interval progression of multilevel spondylosis which is worst at L5-S1 and L1-L2. Multilevel facet arthropathy. At least [id number] canal stenosis at L4-L5 and L5-S1, incompletely characterized by CT. Soft tissues: No acute findings. Vascular calcifications. CT/CT lumbar spine wo con* [id number] IMPRESSION: Interval progression of multilevel spondylosis, worst at L5-S1 and L1-L2. [id number] canal stenosis at L4-L5 and L5-S1, incompletely characterized by CT. Consider MRI if not previously performed for further evaluation.
--- NOTE | 2023-09-14 10:42 | W.ED.EXTPRO ---
HPI - Extremity Problem General: Chief complaint: Extremity Injury, Lower Stated complaint: right hip pain Time Seen by Provider: 09/14/23 10:21 Source: patient Mode of arrival: ambulatory History of Present Illness: 62-year-old female presents emergency room with complaints of what she describes as hip pain however discussed with her in detail she refers more to the lower lumbar region and the right SI region rather than the actual hip itself no pain radiating into the lower extremity. No recent trauma or falls she has a history of rheumatoid arthritis. She currently is on meloxicam. No previous surgery to the right hip. Onset (ago): day(s) Pain Consistency: constant Location: right (Low back SI) Quality: sharp Relieving factors: nothing and rest Exacerbating factors: range of motion, weight bearing and walking Associated symptoms: Deny arthralgias, chest pain, fever(s), myalgias, rash or short of breath Review of Systems Const: Denies: fever(s), chills, fatigue or malaise Card: Denies: chest pain Resp: Denies: dyspnea GI: Denies: abdominal pain : Denies: dysuria, urinary frequency or urinary urgency Musc: Reports: back pain; Denies: neck pain Skin/Breast: Denies: rash PFSH ED PFSH: Medical History DJD (degenerative joint disease) of cervical spine Osteoarthritis of knees, bilateral Psychiatric care No pertinent past medical history neghx: dm,dvt/pe PCP: Dr. Mello Endometrial cancer (~2012) Resulted in hysterectomy; she has not had follow-up since the surgery in 2012 Alcohol use disorder Colon polyps Hypertension Fracture of fifth metacarpal bone Major depressive disorder, recurrent, in partial remission Anxiety disorder Surgical History H/O dilation and curettage (~11/01/12) Performed by Dr. Hernán Bauman at [facility] for atypical glandular cells of undetermined significance History of hysterectomy LAVH, suspect BSO-- performed in [place] due to endometrial cancer. She is a poor historian. S/P repair of ventral hernia (06/11/21) Status post colonoscopy (06/10/21) History of ankle surgery Left H/O tubal ligation History of delivery Family History Grandmother Cancer paternal-female parts Other CAD (coronary artery disease) Hypertension Denies family history of Colon cancer Ovarian cancer Diabetes Clotting disorder Dementia Heart disease Hyperlipidemia Psychiatric illness Chronic kidney disease (CKD) Breast cancer Anesthesia complication Bleeding disorder Lung disease Uterine cancer Thyroid disease Stroke Social History Smoking and tobacco/nicotine status: former use of tobacco/nicotine Quit status (tobacco/nicotine): has quit using Year quit tobacco: 1999 Former quit date comment: 1 PPD for 30 years Second hand smoke exposure: No Alcohol intake: former Former alcohol use details: 02/13/21 Substance/Drug Use: never Lives independently: Yes Marital status: Number of children: 2 Elizabeth/Yarsanism: Taoist Special elizabeth needs: Yes Agree to transfusion: No Physical Exam Const: GENERAL APPEARANCE: cooperative and comfortable ORIENTATION/CONSCIOUSNESS: Yes awake, Yes oriented to person, Yes oriented to place and Yes oriented to time HENMT: COMMON NORMALS: normocephalic, atraumatic and hearing grossly normal bilaterally HEAD & SCALP: normocephalic and atraumatic Resp: COMMON NORMALS: normal respiratory effort, No retractions, No use of accessory muscles and clear to auscultation bilaterally AUSCULTATION: clear to auscultation bilaterally Cardio: COMMON NORMALS: regular rate, regular rhythm and No murmurs present (Cardio) RATE: regular rate RHYTHM: regular rhythm GI: COMMON NORMALS: Soft to palpation and No hepatosplenomegaly present AUSCULTATION: Yes normoactive bowel sounds PALPATION: Yes Soft to palpation, No Tenderness to palpation present (GI), No Guarding due to palpation present (GI) and Yes No hepatosplenomegaly present Extremity: COMMON NORMALS: normal to inspection, capillary refill normal, no clubbing, cyanosis or edema, no calf tenderness and no pedal edema Neuro: SENSORIUM/ORIENTATION: Yes oriented to person, Yes oriented to place and Yes oriented to time Skin: COMMON NORMALS: no rashes or lesions noted GENERAL SKIN EXAM: no rashes or lesions noted Course Vital Signs: Vital signs: Vital Signs Temperature 97.7 F 09/14/23 10:24 Pulse Rate 60 09/14/23 10:24 Respiratory Rate 14 09/14/23 10:24 Blood Pressure 122/79 09/14/23 10:24 Pulse Oximetry 97 09/14/23 10:24 Oxygen Delivery Me thod Room Air 09/14/23 10:24 MDM - Extremity (Nontraumatic) Medical Decision Making Lumbar back pain extending into the right buttock and SI joint. CT did not show any acute fractures does show significant arthritic changes and some spondylolisthesis finalize no acute appearing compression fractures. Discharged home patient's pain is improved. Prednisone taper and tizanidine as needed follow-up with primary care if symptoms persist Medical Records I reviewed the patient's medical records. Lab Data I reviewed the patient's lab results. Radiology Impressions Lumbar Spine X-Ray 09/14/23 00:00 IMPRESSION: Mild progression of extensive multilevel degenerative changes from January [address] 09/14/23 10:36 IMPRESSION: Interval progression of multilevel spondylosis, worst at L5-S1 and L1-L2. Nyfp-ly-fhytwrep canal stenosis at L4-L5 and L5-S1, incompletely characterized by CT. Consider MRI if not previously performed for further evaluation. All radiology interpretation(s) finalized by discharge Discharge Plan Discharge Patient Disposition: Home Clinical Impression: Lumbar radicular pain Condition: Stable Prescriptions: New tizanidine 4 mg tablet 4 mg PO Q6H PRN (Reason: muscle spasticity) Qty: 20 0RF Rx Instructions: do not exceed 3 doses per 24 hrs prednisone 20 mg tablet 20 mg PO TID Qty: 15 0RF Rx Instructions: 1 p.o. 3 times daily x3 days, 1 p.o. twice daily x2 days, 1 p.o. daily x2 days tramadol 50 mg tablet 50 mg PO Q8H PRN (Reason: pain) Qty: 14 0RF No Action Excedrin Extra Strength 250-250-65 mg tablet 1 tab PO DAILY PRN (Reason: Pain) meloxicam 15 mg tablet 15 mg PO DAILY Qty: 60 1RF diazepam 5 mg tablet 5 mg PO DAILY PRN (Reason: anxiety) Qty: 30 2RF Rx Instructions: Take one tablet daily, if needed, for anxiety levothyroxine 75 mcg tablet 75 mcg PO DAILY Qty: 90 1RF atorvastatin [Lipitor] 40 mg tablet 40 mg PO DAILY Qty: 90 1RF modafinil 200 mg tablet 200 mg PO QAM trazodone 100 mg tablet 200 mg PO BEDTIME PRN (Reason: Sleep) Nutrafull 1 tab PO DAILY Discharge Orders: Discharge ED (Routine); Ordered 09/14/23 Ordered By: Partha Marroquin Referrals: Guzman Mello MD [Primary Care Provider] - Discharge Diet: Usual diet Discharge Activity: Increase activity as tolerated Patient Instructions: Lumbar Radiculopathy (ED), Lower Back Exercises (ED), Opioid Safety, Pain Management Activity Restrictions/Additional Instructions: Thank you for choosing [facility] for your healthcare needs today. Please realize this is an emergency room and that we are providing you with a medical screening exam and this may not be complete and all inclusive of all the testing and or work up that you may need to determine your ailment or severity of your illness. It is very important that you follow up as instructed or that you return to the Emergency Department should you have concerns or if your condition changes or worsens in any way. If your symptoms persist follow-up with your primary care doctor to discuss further options for evaluation and treatment. Coding Level of Care Code ED Storage And Backup Administrator for Carolyn Jauregui
[2023-09-14] MEDS: dexamethasone 10 mg/mL INJ IM (10:57)
[2023-09-14] MEDS: morphine 4 mg/mL SDV 1 mL 2 MG IVP (10:57)
[2023-09-14] MEDS: ketorolac 30 mg/mL INJ IVP (10:57)
== END 2023-09-14 13:07 | disposition home or self-care (01) ==
PROVIDERS: Emergency Provider Family Medicine; PCP Family Medicine
DX: M54.16 Radiculopathy, lumbar region (principal); Z87.891 Personal history of nicotine dependence; Z85.42 Personal history of malignant neoplasm of other parts of uterus; I10 Essential (primary) hypertension
CPT/HCPCS: 72100; 72131; 73502; 96372; 96374; 96375; 99285; J1100; J1885; J2270

== ENCOUNTER 2023-09-24 06:48 | Emergency (ER) | payer MEDICAID, SELFPAY ==
[2023-09-24 06:51] VITALS: BP 115/83; PULSE 59; RESP 16; TEMP 36.3; O2SAT 100
--- NOTE | 2023-09-24 07:04 | W.ED.BACK ---
HPI - Back Pain/Injury General: Chief Complaint: Back Pain/Injury Stated Complaint: Low back pain Time Seen by Provider: 09/24/23 07:04 Source: patient Mode of arrival: ambulatory History of Present Illness: 62-year-old female presents emergency room with complaint of back pain with left leg radicular pain. She was seen earlier this week improved with medications given in the ER at that time CT was done of her back there is no evidence of fracture there was some chronic changes and spondylolysis. She has no red flag symptoms no bowel or bladder dysfunction. States pain medications given or not adequate at home. No other injury or falls since last time she was seen at the CT. MD elicited complaint: back pain Pertinent past history: prior back pain Onset (ago): day(s) Timing: constant Severity: severe Quality: sharp and spasming Location: lumbar spine Radiation: left upper leg and left leg below the knee Exacerbating factors: movement, sitting upright and walking Relieving factors: supine Associated symptoms: Deny abdominal pain, arthralgias, chills, change in bowel habits, difficulty walking, dysuria, fatigue, fecal incontinence, fever(s), hematuria, myalgias, nausea, numbness, syncope, tingling/numbness/burning, urinary frequency, urinary urgency, vomiting or weakness Review of Systems Const: Denies: fever(s), chills or fatigue Card: Denies: chest pain or syncope Resp: Denies: dyspnea GI: Denies: abdominal pain, nausea, vomiting, fecal incontinence or change in bowel habits : Denies: dysuria, urinary frequency, urinary urgency or hematuria Musc: Denies: neck pain or back pain Skin/Breast: Denies: rash Neuro: Denies: difficulty walking PFS ED PFSH: Medical History DJD (degenerative joint disease) of cervical spine Osteoarthritis of knees, bilateral Psychiatric care No pertinent past medical history neghx: dm,dvt/pe PCP: Dr. Mello Endometrial cancer (~2012) Resulted in hysterectomy; she has not had follow-up since the surgery in 2012 Alcohol use disorder Colon polyps Hypertension Fracture of fifth metacarpal bone Major depressive disorder, recurrent, in partial remission Anxiety disorder Surgical History H/O dilation and curettage (~11/01/12) Performed by Dr. Hernán Bauman at [facility] for atypical glandular cells of undetermined significance History of hysterectomy LAVH, suspect BSO-- performed in [place] due to endometrial cancer. She is a poor historian. S/P repair of ventral hernia (06/11/21) Status post colonoscopy (06/10/21) History of ankle surgery Left H/O tubal ligation History of delivery Family History Grandmother Cancer paternal-female parts Other CAD (coronary artery disease) Hypertension Denies family history of Colon cancer Ovarian cancer Diabetes Clotting disorder Dementia Heart disease Hyperlipidemia Psychiatric illness Chronic kidney disease (CKD) Breast cancer Anesthesia complication Bleeding disorder Lung disease Uterine cancer Thyroid disease Stroke Social History Smoking and tobacco/nicotine status: former use of tobacco/nicotine Quit status (tobacco/nicotine): has quit using Year quit tobacco: 1999 Former quit date comment: 1 PPD for 30 years Second hand smoke exposure: No Alcohol intake: former Former alcohol use details: 02/13/21 Substance/Drug Use: never Lives independently: Yes Marital status: Number of children: 2 Elizabeth/Roman Catholic: [employer] Special elizabeth needs: Yes Agree to transfusion: No Physical Exam Const: GENERAL APPEARANCE: cooperative and comfortable ORIENTATION/CONSCIOUSNESS: Yes awake, Yes oriented to person, Yes oriented to place and Yes oriented to time HENMT: COMMON NORMALS: normocephalic, atraumatic and hearing grossly normal bilaterally HEAD & SCALP: normocephalic and atraumatic Resp: COMMON NORMALS: normal respiratory effort, No retractions, No use of accessory muscles and clear to auscultation bilaterally AUSCULTATION: clear to auscultation bilaterally Cardio: COMMON NORMALS: regular rate, regular rhythm and No murmurs present (Cardio) RATE: regular rate RHYTHM: regular rhythm GI: COMMON NORMALS: Soft to palpation and No hepatosplenomegaly present AUSCULTATION: Yes normoactive bowel sounds PALPATION: Yes Soft to palpation, No Tenderness to palpation present (GI), No Guarding due to palpation present (GI) and Yes No hepatosplenomegaly present Extremity: COMMON NORMALS: normal to inspection, capillary refill normal, no clubbing, cyanosis or edema, no calf tenderness and no pedal edema Neuro: SENSORIUM/ORIENTATION: Yes oriented to person, Yes oriented to place and Yes oriented to time OTHER: Bilaterally patellar tendons +2 for dorsum plantarflexion strength 5 out of 5 in lower extremity sensation slightly decreased in the lower leg on the left compared to the right. Skin: COMMON NORMALS: no rashes or lesions noted GENERAL SKIN EXAM: no rashes or lesions noted Course Vital Signs: Vital signs: Vital Signs Temperature 97.4 F L 09/24/23 06:51 Pulse Rate 73 09/24/23 10:40 Respiratory Rate 16 09/24/23 10:40 Blood Pressure 132/90 09/24/23 10:40 Pulse Oximetry 99 09/24/23 10:40 Oxygen Delivery Me thod Room Air 09/24/23 06:51 MDM - Back Pain/Injury Medical Decision Making Left leg radicular pain improved with medications given. Discharged home on steroid taper anti-inflammatories muscle relaxer follow-up with primary care or orthopedic surgery. No red flag symptoms at this time Medical Records I reviewed the patient's medical records. Labs I reviewed the patient's lab results. All radiology interpretation(s) finalized by discharge Discharge Plan Discharge Patient Disposition: Home Clinical Impression: Lumbar radiculopathy Condition: Stable Prescriptions: New Percocet 5-325 mg tablet 1 tab PO Q4H PRN (Reason: pain) Qty: 20 0RF prednisone 20 mg tablet 20 mg PO TID Qty: 15 0RF Rx Instructions: 1 p.o. 3 times daily x3 days, 1 p.o. twice daily x2 days, 1 p.o. daily x2 days No Action Excedrin Extra Strength 250-250-65 mg tablet 1 tab PO DAILY PRN (Reason: Pain) meloxicam 15 mg tablet 15 mg PO DAILY Qty: 60 1RF diazepam 5 mg tablet 5 mg PO DAILY PRN (Reason: anxiety) Qty: 30 2RF gabapentin 100 mg capsule 200 mg PO BID Qty: 60 0RF tramadol 50 mg tablet 50 mg PO Q8H PRN (Reason: pain) Qty: 14 0RF levothyroxine 75 mcg tablet 75 mcg PO DAILY Qty: 90 1RF atorvastatin [Lipitor] 40 mg tablet 40 mg PO DAILY Qty: 90 1RF Narcan 4 mg/actuation spray,non-aerosol 1 spray INTRANASAL Q3M PRN (Reason: Opioid Overdose) Narcan 4 mg/actuation [place],Non-Aerosol 1 spray INTRANASAL Q3M Rx Instructions: spray 1 dose into ONE nostril; alternate nostrils w each dose until help arrives trazodone 100 mg tablet 200 mg PO BEDTIME PRN (Reason: Sleep) Nutrafull 1 tab PO DAILY tizanidine 4 mg tablet 4 mg PO Q6H PRN (Reason: muscle spasticity) Qty: 20 0RF Rx Instructions: do not exceed 3 doses per 24 hrs Discharge Orders: Discharge ED (Routine); Ordered 09/24/23 Ordered By: Partha Marroquin Referrals: Guzman Mello MD [Primary Care Provider] - Discharge Diet: Usual diet Discharge Activity: Increase activity as tolerated Patient Instructions: Opioid Safety, Pain Management Activity Restrictions/Additional Instructions: Thank you for choosing [facility] for your healthcare needs today. Please realize this is an emergency room and that we are providing you with a medical screening exam and this may not be complete and all inclusive of all the testing and or work up that you may need to determine your ailment or severity of your illness. It is very important that you follow up as instructed or that you return to the Emergency Department should you have concerns or if your condition changes or worsens in any way. You were seen today for back pain. Will set you up for an outpatient MRI and follow-up with orthopedic spine surgery. Start prednisone taper tomorrow use the Percocet given for pain today as needed. Coding Level of Care Code ED [employer] Manager for Carolyn Jauregui
[2023-09-24 07:36] VITALS: RESP 15; O2SAT 99
[2023-09-24] MEDS: morphine 4 mg/mL SDV 1 mL IVP (07:36)
[2023-09-24] MEDS: orphenadrine 30 mg/mL Inj 2 mL 60 MG IM (07:36)
--- NOTE | 2023-09-24 09:01 | PC.NURSE ---
pt blood pressure 84/58, 4mg Morphine held, Dr. Marroquin notified. per verbal orders from Dr. Marroquin to give 500mL NS bolus and 25mcg Fentanyl IVP now.
[2023-09-24 09:03] VITALS: BP 84/58
[2023-09-24 09:08] VITALS: RESP 16; O2SAT 99
[2023-09-24] MEDS: fentaNYL 50 mcg/mL INJ 2mL 25 MCG IVP (09:08)
[2023-09-24] MEDS: sodium chloride 0.9% 500 ML 999 ML IV (09:08)
[2023-09-24 10:40] VITALS: BP 132/90; PULSE 73; RESP 16; O2SAT 99
== END 2023-09-24 10:41 | disposition home or self-care (01) ==
PROVIDERS: Emergency Provider Family Medicine; PCP Family Medicine
DX: M54.16 Radiculopathy, lumbar region (principal); Z87.891 Personal history of nicotine dependence; Z85.42 Personal history of malignant neoplasm of other parts of uterus; I10 Essential (primary) hypertension
CPT/HCPCS: 96361; 96372; 96374; 96375; 99284; J2270; J2360; J3010; J7040

== ENCOUNTER → 2023-10-04 15:06 | Outpatient (BNVA) | payer MEDICAID, SELFPAY | PROVIDERS: PCP Family Medicine; Visit Provider Nurse Practitioner Family | DX: L63.8 Other alopecia areata (principal); D48.5 Neoplasm of uncertain behavior of skin; D22.39 Melanocytic nevi of other parts of face; L57.8 Other skin changes due to chronic exposure to nonionizing radiation | CPT/HCPCS: 11102; 99213 ==

== ENCOUNTER → 2023-10-08 11:13 | Outpatient (BNVA) | payer MEDICAID, SELFPAY | PROVIDERS: PCP Family Medicine; Visit Provider Emergency Medicine | DX: R50.9 Fever, unspecified (principal) | CPT/HCPCS: 87400 ==

== ENCOUNTER → 2023-10-25 09:02 | Outpatient (BNVA) | payer MEDICAID, SELFPAY | PROVIDERS: PCP Family Medicine; Visit Provider Anesthesiology Pain Medicine | DX: M54.32 Sciatica, left side (principal); M47.812 Spondylosis without myelopathy or radiculopathy, cervical region; M48.061 Spinal stenosis, lumbar region without neurogenic claudication | CPT/HCPCS: 99205 ==

== ENCOUNTER → 2023-11-04 12:52 | Outpatient (BNVA) | payer MEDICAID, SELFPAY | PROVIDERS: PCP Family Medicine; Visit Provider Anesthesiology Pain Medicine | DX: M54.16 Radiculopathy, lumbar region (principal); M54.32 Sciatica, left side | CPT/HCPCS: 64483; 64484; J1100; J3490 ==

== ENCOUNTER → 2023-11-24 09:54 | Outpatient (BNVA) | payer MEDICAID, SELFPAY | PROVIDERS: PCP Family Medicine; Visit Provider Anesthesiology Pain Medicine | DX: G89.29 Other chronic pain; M47.812 Spondylosis without myelopathy or radiculopathy, cervical region; M48.061 Spinal stenosis, lumbar region without neurogenic claudication; M79.604 Pain in right leg | CPT/HCPCS: 99214 ==

== ENCOUNTER → 2023-12-02 12:37 | Outpatient (BNVA) | payer MEDICAID, SELFPAY | PROVIDERS: PCP Family Medicine; Visit Provider Orthopaedic Surgery | DX: M54.50 Low back pain, unspecified (principal); G89.29 Other chronic pain; M54.9 Dorsalgia, unspecified; M48.061 Spinal stenosis, lumbar region without neurogenic claudication | CPT/HCPCS: 72110; 99204 ==

== ENCOUNTER → 2023-12-23 09:23 | Outpatient (BNVA) | payer MEDICARE, MEDICAID, SELFPAY | PROVIDERS: PCP Family Medicine; Visit Provider Anesthesiology Pain Medicine | DX: G89.29 Other chronic pain; M47.812 Spondylosis without myelopathy or radiculopathy, cervical region; M48.061 Spinal stenosis, lumbar region without neurogenic claudication | CPT/HCPCS: 99214 ==

== ENCOUNTER 2024-01-06 06:47 | Outpatient (CLI) | payer MEDICARE, MEDICAID, SELFPAY ==
--- NOTE | 2024-01-06 07:15 | MR_ITS ---
WS: [id number] MRI LUMBAR SPINE NONCONTRAST HISTORY: back pain COMPARISON: CT lumbar spine 09/14/2023 TECHNIQUE: Sagittal and axial multisequence imaging is submitted. C6-7 disc osteophyte encroaching upon the cervical canal. Thoracolumbar scoliosis. Small amount of edema along the inferior endplate of L4. Mild anterior wedgi ng of L4. There is asymmetric disc space narrowing due to the scoliosis of the lumbar spine. Disc spa aaliyah are all moderately narrowed. Conus terminates normally at L1-2 disc level. L1-L2: Diffuse annular disc bulging with facet arthritis encroaching into the thecal sac. Narrowing o f the subarticular recesses and foramina. Mild central, bilateral subarticular recess and foraminal s tenosis. L2-L3: Slight retrolisthesis of L2. Annular disc bulging with osteophytic ridging. There is encroachm ent upon the ventral thecal sac and subarticular recesses. Mild deformity of the thecal sac. Severe c entral, bilateral subarticular recess with moderate to severe foraminal stenosis, RIGHT greater than LEFT. L3-L4: Marked annular disc bulging, facet arthritis and ligamentum flavum hypertrophy. Severe central , bilateral subarticular recess and foraminal stenosis. Greater stenosis on the LEFT. L4-L5: Diffuse annular disc bulging with osteophytic ridging. Severe facet arthritis. Severe central, bilateral subarticular recess and foraminal stenosis, LEFT greater than RIGHT. L5-S1: Mild annular disc bulging encroaching upon the S1 nerve roots. Small foraminal osteophytes. Mi ld central and subarticular recess stenosis. Moderate foraminal stenosis. MR/MR lumbar spine wo con* [id number] IMPRESSION: 1. Advanced degenerative rotary scoliosis throughout the lumbar spine with mul tilevel areas of stenoses due to multiple factors. 2. L3-4 and L4-5: Severe central, bilateral subarticular recess and foraminal stenosis, LEFT greater than RIGHT. Marked encroachment upon the traversing and exiting nerve roots. 3. L5-S1: Moderate foraminal stenosis with mild central and subarticular reces s stenosis. 4. L2-3: Severe central, bilateral subarticular recess with moderate to severe foraminal stenosis, RIGHT greater than LEFT. 5. L1-2: Mild central, bilateral subarticular recess and foraminal stenosis.
== END 2024-01-06 06:48 | disposition home or self-care (01) ==
LOC: RAD 06:47
PROVIDERS: PCP Family Medicine; Visit Provider Orthopaedic Surgery
DX: M41.86 Other forms of scoliosis, lumbar region (principal); M99.63 Osseous and subluxation stenosis of intervertebral foramina of lumbar region; M99.64 Osseous and subluxation stenosis of intervertebral foramina of sacral region; M48.061 Spinal stenosis, lumbar region without neurogenic claudication; M51.36 Other intervertebral disc degeneration, lumbar region
CPT/HCPCS: 72148

== ENCOUNTER 2024-01-10 10:22 | Outpatient (RCR) | payer MEDICARE, MEDICAID, SELFPAY | END 2024-02-01 23:59 | disposition home or self-care (01) | LOC: SPT 10:22 | PROVIDERS: PCP Family Medicine; Visit Provider Family Medicine | DX: M54.50 Low back pain, unspecified (principal); G89.29 Other chronic pain | CPT/HCPCS: 97110; 97161 ==

== ENCOUNTER → 2024-01-13 10:15 | Outpatient (BNVA) | payer MEDICARE, SELFPAY | PROVIDERS: PCP Family Medicine; Visit Provider Orthopaedic Surgery | DX: Z09 Encounter for follow-up examination after completed treatment for conditions other than malignant neoplasm (principal); M48.062 Spinal stenosis, lumbar region with neurogenic claudication | CPT/HCPCS: 99214 ==

== ENCOUNTER 2024-01-17 13:57 | Outpatient (CLI) | payer MEDICARE, MEDICAID, SELFPAY ==
[2024-01-17 14:30] LABS: Basophils # 0.1 10^3/uL (0.0-0.1); Basophils % 0.7 %; Eosinophils # 0.3 10^3/uL (0.0-0.8); Eosinophils % 4.1 %; Hematocrit 37.5 % (36-47); Lymphocytes # 3.2 10^3/uL (0.8-4.8); Lymphocytes % 38.9 %; Mean Corpuscular HGB Conc 33.6 g/dL (30-55); Mean Corpuscular Hemoglobin 29.2 pg (27-33); Mean Platelet Volume 9.6 fL (7.4-10.4); Monocytes # 0.6 10^3/uL (0.2-0.9); Monocytes % 7.1 %; Neutrophils # 4.04 10^3/uL (1.8-7.7); Nucleated Red Blood Cells % 0 %; Platelet Count 199 10^3/cmm (157-399); Red Blood Count 4.31 10^6/uL (3.85-5.65); Red Cell Distribution Width 11.9 % (12.1-15.1); White Blood Count 8.27 10^3/uL (3.29-11.43)
[2024-01-17 14:41] LABS: Alanine Aminotransferase 17 U/L (0-33); Albumin Level 4.5 g/dL (3.5-5.2); Alkaline Phosphatase 102 U/L (35-105); Anion Gap 16.2 (5-19); Aspartate Amino Transferase 24 U/L (0-32); Blood Urea Nitrogen 15 mg/dL (8-23); Calcium 9.5 mg/dL (8.5-10.5); Carbon Dioxide 26 mmol/L (22-29); Chloride 104 mmol/L (98-107); Globulin 2.5 g/dL (1.3-4.6); Glucose 107 mg/dL (65-115); Osmolality Calculated 295 mOsm/kg (285-295); Potassium 4.2 mmol/L (3.5-5.1); Sodium 142 mmol/L (136-145); Total Bilirubin 0.4 mg/dL (0.15-1.2)
[2024-01-17 15:40] LABS: Urine Appearance Clear (CLEAR); Urine Color Yellow (Yellow); pH Urine 5 (5-7)
[2024-01-17 15:41] LABS: Add Urine Microscopic? YES; Bacteria Urine 1+ /hpf; Bilirubin Urine Neg (Negative); Blood Urine Neg (Negative); Glucose Urine UA Norm (Normal); Ketones Urine 1+ (Negative); Leukocyte Esterase Urine 1+ (Negative); Nitrate Urine Negative (Negative); Protein Urine Neg (Negative); Squamous Epithelial Cell Urine 0-4 /hpf (0-5); Urobilinogen Urine 1 mg/dL (Negative)
[2024-01-17 15:42] LABS: Add Urine Culture? No
== END 2024-01-17 13:58 | disposition home or self-care (01) ==
PROVIDERS: PCP Family Medicine; Visit Provider Orthopaedic Surgery
DX: M48.062 Spinal stenosis, lumbar region with neurogenic claudication (principal); M54.50 Low back pain, unspecified; G89.29 Other chronic pain; M48.061 Spinal stenosis, lumbar region without neurogenic claudication
CPT/HCPCS: 36415; 80053; 81001; 85025

== ENCOUNTER → 2024-01-19 09:42 | Outpatient (BNVA) | payer MEDICARE, MEDICAID, SELFPAY | PROVIDERS: PCP Family Medicine; Visit Provider Family Medicine | DX: Z01.818 Encounter for other preprocedural examination (principal) | CPT/HCPCS: 81003; 87086; 93005 ==

== ENCOUNTER 2024-02-02 07:02 | Day surgery (SDC) | payer MEDICARE, MEDICAID, SELFPAY ==
[2024-02-02] VITALS (14 sets, daily range): BP systolic 87–154; BP diastolic 55–87; PULSE 49–80; RESP 14–20; TEMP 36.3–36.7; O2SAT 92–98; BMI 29.2
[2024-02-02] MEDS: sodium chloride 0.9% 1,000 ML 30 ML IV (08:35)
--- NOTE | 2024-02-02 08:55 | W.PM.OPSUD ---
Surgery/Procedure H&P Update DATE OF PROCEDURE: February 02, 2024 DATE H&P PERFORMED: 01/19/24 H&P UPDATE INFORMATION: I have reviewed H&P completed within last 30 days, I have examined patient prior to procedure and No changes to prior documentation PREOP DIAGNOSIS: Lumbar stenosis with neurogenic claudication PLANNED PROCEDURE: Operation Date: 02/02/24 09:05 Proposed Procedures p Lumbar Spine Decompression Lumbar Decompression(Not Applicable) - Sandeep Javier DO
--- NOTE | 2024-02-02 09:17 | ANES.PREANE2 ---
Pre-Anesthetic Assessment Height/Weight: Height 1.52 m Weight 68.039 kg O2 Del Method Room Air 02/02/24 07:55 Preop Diagnosis: Lumbar stenosis with neurogenic claudication Operation Date: 02/02/24 09:05 Proposed Procedures p Lumbar Spine Decompression Lumbar Decompression(Not Applicable) - Sandeep Javier, Familial anesthetic complications: None Was Beta Christopher taken within 24 hours: N/A Was Clonidine taken within 24 hours: N/A Last intake: Intake Last Liquid Date 02/01/24 Last Liquid Time 21:00 Last Solid Date 02/01/24 Last Solid Time 17:00 Social No alcohol and No tobacco Exam alert, oriented x 3, clear to auscultation bilaterally and regular rate & rhythm Airway Mallampati: Class I Dentition: partials Metabolic Hyperlipidemia and Thyroid Disease Anesthetic Plan ASA status: 2 Anesthesia: General Risk of > 500 ml blood loss (7ml/kg in children): No Other Pertinent Information Patient is pentecostalism and declines all products to include, prbcs, FFP, and platelets. She is also declining volume esthetician/skin therapist albumin. Patient informed of risks of declining these products including: vision impairment, stroke, heart attack, liver and kidney failure, and . Medications/Allergies Home Medications Medication Instructions Recorded Confirmed Last Taken Type oarhija-bxfvwgkbapeho-sudacatu 250 1 tab PO DAILY PRN Pain 08/04/23 02/02/24 02/01/24 History mg-250 mg-65 mg tablet (Excedrin Extra Strength) atorvastatin 40 mg tablet (Lipitor) 40 mg PO DAILY #90 tabs 08/06/23 02/01/24 02/01/24 Rx levothyroxine 75 mcg tablet 75 mcg PO DAILY #90 tabs 08/06/23 02/01/24 02/01/24 Rx naloxone 4 mg/actuation nasal 1 spray intranasal Q3M 09/24/23 02/01/24 Unknown History spray (Narcan) modafinil 200 mg tablet 200 mg PO DAILY 10/25/23 02/01/24 02/01/24 History diazepam 5 mg tablet 5 mg PO DAILY PRN anxiety #30 tabs 12/09/23 02/02/24 01/30/24 Rx trazodone 100 mg tablet 200 mg (2 x 100 mg) PO BEDTIME PRN 05/02/24 06/25/24 06/24/24 Rx Sleep #60 tabs Nutrafol 1 tab PO DAILY 01/19/24 02/01/24 01/31/24 History oxycodone-acetaminophen 5 mg-325 1 tab PO BID PRN pain 30 days #60 01/21/24 02/01/24 02/01/24 Rx mg tablet (Percocet) tabs Allergies Allergy/AdvReac Type Severity Reaction Status Date / Time promethazine [From Phenergan] Allergy Intermediate restless Verified 02/01/24 14:40 leg sumatriptan [From Imitrex] Allergy unknown Verified 02/01/24 14:40 Current Medications Generic Name Dose Route Start Last Admin Trade Name Freq PRN Reason Stop Dose Admin Sodium Chloride 1,000 mls @ 30 mls/hr 02/02/24 07:30 02/02/24 08:35 Sodium Chloride 0.9% IV 02/03/24 07:29 30 mls/hr .Q24H CURTIS Administration PFSH Anesthesia Medical History DJD (degenerative joint disease) of cervical spine Osteoarthritis of knees, bilateral Psychiatric care No pertinent past medical history neghx: dm,dvt/pe PCP: Dr. 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 Hernán Bauman at [facility] for atypical glandular cells of undetermined significance History of hysterectomy LAVH, suspect BSO-- performed in [place] due to endometrial cancer. She is a poor historian. S/P repair of ventral hernia (06/11/21) Status post colonoscopy (06/10/21) History of ankle surgery Left H/O tubal ligation History of delivery Family History Grandmother Cancer paternal-female parts Other CAD (coronary artery disease) Hypertension Denies family history of Colon cancer Ovarian cancer Diabetes Clotting disorder Dementia Heart disease Hyperlipidemia Psychiatric illness Chronic kidney disease (CKD) Breast cancer Anesthesia complication Bleeding disorder Lung disease Uterine cancer Thyroid disease Stroke Social History Smoking and tobacco/nicotine status: former use of tobacco/nicotine Quit status (tobacco/nicotine): has quit using Year quit tobacco: 1999 Former quit date comment: 1 PPD for 30 years Second hand smoke exposure: No Alcohol intake: former Former alcohol use details: 02/13/21 Substance/Drug Use: never Lives independently: Yes Marital status: Number of children: 2 Elizabeth/Evangelical: Roman Catholic Special elizabeth needs: Yes Agree to transfusion: No Data Anesthesia Cardiac Studies: No Data to Display
[2024-02-02] MEDS: ceFAZolin 2,000 MG in sodium chloride 0.9% (plus) 50 ML 100 MG IV (09:20)
[2024-02-02] MEDS: lidocaine-epi 1% PF 1:200,000 30 mL SDV 10 ML INJECTION (10:07)
--- NOTE | 2024-02-02 11:07 | PM.OP ---
Operative Report Date of procedure: February 02, 2024 Pre-op diagnosis: Lumbar stenosis with neurogenic claudication Post-op diagnosis: same Procedure done: 1. L3-4 laminectomy with partial facetectomy 2. L4-5 laminectomy with partial facetectomy Surgeon: Sandeep Javier DO Estimated blood loss (mL): 25 Procedure: 1. L3-4 laminectomy with partial facetectomy 2. L4-5 laminectomy with partial facetectomy Patient is brought to the operative suite. After undergoing anesthesia they are placed in the prone position. All areas of impingement are well padded. Patient is then prepped and draped in the normal sterile fashion. A skin incision is made over the L3/4 level. This is confirmed under c-arm guidance. A series of dilators are passed and the tubular retractor is docked on the L3 lamina. A bovie is used to clear the soft tissue off the lamina and the L 3/4 facet joint. A high speed nilton is then used to perform the laminectomy and take down the medial aspect of the L 3/4 facet joint. A kerrison rongeure was then used to take down the remaining lamina and smooth the edge of the laminectomy up to the point where the ligamentum flavum attaches. Attention was then brought to the medial aspect of the facet joint. The remaining medial aspect of the superior and inferior aspect of the facet joint were taken down with the kerrison from the pedicle of L3 to L 4. The facet joint had significant hypertrophy. Attention was then brought to the Ligamentum Flavum. The ligament was taken down from the lamina of L3 to L4 and out medially to the remaining facet joint. The ligament was thick. The dura was then exposed. The dura was in good repair. The L3 nerve was then traced with a curette out the L3/4 foramen and found to be adequately decompressed. The L4 nerve was traced with a curette around the L4 pedicle. The lateral recess was opened with a kerrison helping to further decompress the L4 nerve. Wound is then irrigated copiously with saline and surgiflo is used to stop any bleeding. The tubular retractor is removed and the A skin incision is made over the L4/5 level. This is confirmed under c-arm guidance. A series of dilators are passed and the tubular retractor is docked on the L4 lamina. A bovie is used to clear the soft tissue off the lamina and the L 4/5 facet joint. A high speed nilton is then used to perform the laminectomy and take down the medial aspect of the L 4/5 facet joint. A kerrison rongeure was then used to take down the remaining lamina and smooth the edge of the laminectomy up to the point where the ligamentum flavum attaches. Attention was then brought to the medial aspect of the facet joint. The remaining medial aspect of the superior and inferior aspect of the facet joint were taken down with the kerrison from the pedicle of L4 to L 5. The facet joint had significant hypertrophy. Attention was then brought to the Ligamentum Flavum. The ligament was taken down from the lamina of L4 to L5 and out medially to the remaining facet joint. The ligament was thick and scarred partially calcified. The dura was then exposed. The dura was in good repair. The L4 nerve was then traced with a curette out the L4/5 foramen and found to be adequately decompressed. The L5 nerve was traced with a curette around the L5 pedicle. The lateral recess was opened with a kerrison helping to further decompress the L5 nerve. Wound is then irrigated copiously with saline and surgiflo is used to stop any bleeding. The tubular retractor is removed and the wound is closed with vicryl and monocryl suture. Glue is then used to protect the wound. A sterile dressing is then placed. Patient was then placed in the supine position and transferred to the PACU in stable condition.
[2024-02-02] MEDS: fentaNYL 50 mcg/mL INJ 2mL IVP (11:10)
--- NOTE | 2024-02-02 11:40 | ANE.PACU2 ---
Inpatient post-anesthesia follow up: Airway intact: Yes Vital signs: Temperature 97.6 F Pulse Rate 50 Respiratory Rate 14 Blood Pressure 104/72 Pulse Oximetry 98 Oxygen Delivery Me thod Nasal Cannula Oxygen Flow Rate 2 Fraction of Inspir ed Oxygen Hydration adequate: Yes Nausea and vomiting: No Pain level: 1 Mental status: Baseline
--- NOTE | 2024-02-02 12:03 | XR_ITS ---
WS: [id number] Exam: XR lumbar spine 2-3V* [id number] Date/Time of Exam: 02/02/2024 12:03 PM Reason For Exam: YVES PICS Intraoperative limited AP images of the lower lumbar spine are submitted. The images were obtained fo r preoperative planning and localization purposes.
== END 2024-02-02 14:05 | disposition home or self-care (01) ==
PROVIDERS: PCP Family Medicine; Visit Provider Orthopaedic Surgery
PROC: (CPT 63005; principal; 2024-02-02 08:55)
DX: M48.062 Spinal stenosis, lumbar region with neurogenic claudication (principal); I10 Essential (primary) hypertension; Z87.891 Personal history of nicotine dependence
CPT/HCPCS: 63047; 63048; 72100; 76000; J0690; J1100; J2250; J2405; J2704; J3010; J3490; J7030

== ENCOUNTER 2024-02-05 14:43 | Emergency (ER) | payer MEDICARE, MEDICAID, SELFPAY ==
[2024-02-05 14:45] VITALS: BP 123/78; PULSE 83; RESP 17; TEMP 37.3; O2SAT 96
--- NOTE | 2024-02-05 16:13 | ED_ITS ---
HPI - Extremity Problem General: Chief complaint: Extremity Problem,Nontraumatic Stated complaint: surgery 3xdy / leg pain Time Seen by Provider: 02/05/24 15:43 Source: patient Mode of arrival: ambulatory History of Present Illness: 63-year-old female presents emergency ro om 3 days postop lumbar surgery. Reviewing the op notes patient had L3 445 lumbar laminectomy with partial facetectomy. She did well initially but overnight and today she has had worsening pain. No difficulty with urination no fecal incontinence. Pain radiates down her leg similar to what she was experiencing prior to her surgery. She denies leg pain or swelling no chest pain or shortness of breath MD Complaint: extremity pain Pain Consistency: constant Location: left, right and lower extremity Radiation: distal Relieving factors: nothing Exacerbating factors: nothing Associated symptoms: Deny arthralgias, chest pain, fever(s), myalgias, rash or short of breath Review of Systems Const: Denies: fever(s) Card: Denies: chest pain Resp: Denies: dyspnea GI: Denies: abdominal pain : Denies: dysuria, urinary frequency or urinary urgency Musc: Reports: back pain and extremity pain; Denies: neck pain Skin/Breast: Denies: rash PFSH ED PFSH: Medical History DJD (degenerative joint disease) of cervical spine Osteoarthritis of knees, bilateral Psychiatric care No pertinent past medical history neghx: dm,dvt/pe PCP: Dr. 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 Hernán Bauman at [facility] for atypical glandular cells of undetermined significance History of hysterectomy LAVH, suspect BSO-- performed in [place] due to endometrial cancer. She is a poor historian. S/P repair of ventral hernia (06/11/21) Status post colonoscopy (06/10/21) History of ankle surgery Left H/O tubal ligation History of delivery Family History Grandmother Cancer paternal-female parts Other CAD (coronary artery disease) Hypertension Denies family history of Colon cancer Ovarian cancer Diabetes Clotting disorder Dementia Heart disease Hyperlipidemia Psychiatric illness Chronic kidney disease (CKD) Breast cancer Anesthesia complication Bleeding disorder Lung disease Uterine cancer Thyroid disease Stroke Social History Smoking and tobacco/nicotine status: former use of tobacco/nicotine Quit status (tobacco/nicotine): has quit using Year quit tobacco: 1999 Former quit date comment: 1 PPD for 30 years Second hand smoke exposure: No Alcohol intake: former Former alcohol use details: 02/13/21 Substance/Drug Use: never Lives independently: Yes Marital status: Number of children: 2 Elizabeth/Jewish: Judaism Special elizabeth needs: Yes Agree to transfusion: No Physical Exam Const: GENERAL APPEARANCE: cooperative ORIENTATION/CONSCIOUSNESS: Yes awake, Yes oriented to person, Yes oriented to place and Yes oriented to time HENMT: COMMON NORMALS: normocephalic, atraumatic and hearing grossly normal bilaterally HEAD & SCALP: normocephalic and atraumatic Resp: COMMON NORMALS: normal respiratory effort, No retractions, No use of accessory muscles and clear to auscultation bilaterally AUSCULTATION: clear to auscultation bilaterally Cardio: COMMON NORMALS: regular rate, regular rhythm and No murmurs present (Cardio) RATE: regular rate RHYTHM: regular rhythm Extremity: COMMON NORMALS: normal to inspection, capillary refill normal, no clubbing, cyanosis or edema, no calf tenderness and no pedal edema OTHER: Dorsum plantarflexion 5 of 5 sensation lower extremities normal Neuro: SENSORIUM/ORIENTATION: Yes oriented to person, Yes oriented to place and Yes oriented to time Skin: COMMON NORMALS: no rashes or lesions noted GENERAL SKIN EXAM: no rashes or lesions noted Course Vital Signs: Vital signs: Vital Signs Temperature 99.2 F 02/05/24 14:45 Pulse Rate 63 02/05/24 18:14 Respiratory Rate 17 02/05/24 18:14 Blood Pressure 108/74 02/05/24 18:14 Pulse Oximetry 93 02/05/24 18:14 Oxygen Delivery Me thod Room Air 02/05/24 14:45 MDM - Extremity (Nontraumatic) Medical Decision Making No saddle paresthesias no red flag symptoms at this time. But she is having postlaminectomy syndrome. She did not improve with medications given will discharge home on a steroid taper continue the oxycodone she was previously prescribed use tizanidine and diclofenac in addition to this follow-up with spine surgery next week if continues to have difficulty Medical Records I reviewed the patient's medical records. Lab Data I reviewed the patient's lab results. No radiology studies performed this visit Discharge Plan Discharge Patient Disposition: Home Clinical Impression: Lumbar post-laminectomy syndrome Condition: Stable Prescriptions: New tizanidine 4 mg tablet 4 mg PO Q6H PRN (Reason: muscle spasticity) Qty: 20 0RF Rx Instructions: do not exceed 3 doses per 24 hrs prednisone 20 mg tablet 20 mg PO TID Qty: 15 0RF Rx Instructions: 1 p.o. 3 times daily x3 days, 1 p.o. twice daily x2 days, 1 p.o. daily x2 days diclofenac sodium 75 mg tablet,delayed release (DR/EC) 75 mg PO Q12H PRN (Reason: pain) Qty: 20 0RF No Action Excedrin Extra Strength 250-250-65 mg tablet 1 tab PO DAILY PRN (Reason: Pain) trazodone 100 mg tablet 200 mg PO BEDTIME PRN (Reason: Sleep) Qty: 60 2RF Rx Instructions: Take two tablets daily at bedtime, if needed, for sleep diazepam 5 mg tablet 5 mg PO DAILY PRN (Reason: anxiety) Qty: 30 2RF modafinil 200 mg tablet 200 mg PO DAILY levothyroxine 75 mcg tablet 75 mcg PO DAILY Qty: 90 1RF atorvastatin [Lipitor] 40 mg tablet 40 mg PO DAILY Qty: 90 1RF oxycodone-acetaminophen [Percocet] 5-325 mg tablet 1 tab PO BID PRN (Reason: pain) 30 Days Qty: 60 0RF Rx Instructions: Not to be taken with opioids or alcohol and only for severe pain naloxone [Narcan] 4 mg/actuation Jemison,Non-Aerosol 1 spray INTRANASAL Q3M Rx Instructions: spray 1 dose into ONE nostril; alternate nostrils w each dose until help arrives oxycodone-acetaminophen 5-325 mg tablet 1 tab PO Q4H PRN (Reason: pain) 7 Days Qty: 40 0RF Nutrafol 1 tab PO DAILY Discharge Orders: Discharge ED (Routine); Ordered 02/05/24 Ordered By: Partha Marroquin Referrals: Guzman Mello MD [Primary Care Provider] - Patient Instructions: Opioid Safety, Pain Management Activity Restrictions/Additional Instructions: Thank you for choosing [facility] for your healthcare needs today. It is very important that you follow up as instructed or that you return to the Emergency Department should you have concerns or if your condition changes or worsens in any way. You were seen today with worsening back pain radiating to her legs. Your exam did not show signs of cauda equina. Suspect this is post lumbar laminectomy syndrome. Patients will sometimes shortly after surgery have Equell of blunt or worsening back pain with radiation into the leg. You should start the oral steroids tomorrow continue use the oxycodone your previously prescribed you can also use the diclofenac or the muscle relaxer as needed Coding Level of Care Code ED Clinical Documentation Consultant for Carolyn Jauregui
[2024-02-05 16:28] VITALS: RESP 16
[2024-02-05] MEDS: orphenadrine 30 mg/mL Inj 2 mL 60 MG IVP (16:28)
[2024-02-05] MEDS: dexamethasone 10 mg/mL INJ IVP (16:28)
[2024-02-05] MEDS: morphine 4 mg/mL SDV 1 mL IVP (16:28)
[2024-02-05] MEDS: ketorolac 30 mg/mL INJ IVP (16:28)
[2024-02-05 18:14] VITALS: BP 108/74; PULSE 63; RESP 17; O2SAT 93
== END 2024-02-05 18:10 | disposition home or self-care (01) ==
PROVIDERS: Emergency Provider Family Medicine; PCP Family Medicine
DX: M96.1 Postlaminectomy syndrome, not elsewhere classified (principal); Z87.891 Personal history of nicotine dependence; I10 Essential (primary) hypertension; Z85.89 Personal history of malignant neoplasm of other organs and systems
CPT/HCPCS: 96374; 96375; 99284; J1100; J1885; J2270; J2360

== ENCOUNTER → 2024-02-09 17:11 | Outpatient (BNVA) | payer MEDICARE, MEDICAID, SELFPAY | PROVIDERS: PCP Family Medicine; Visit Provider Nurse Practitioner Women's Health | DX: Z01.419 Encounter for gynecological examination (general) (routine) without abnormal findings (principal) | CPT/HCPCS: 87624 ==

== ENCOUNTER → 2024-02-17 10:46 | Outpatient (BNVA) | payer MEDICARE, MEDICAID, SELFPAY | PROVIDERS: PCP Family Medicine; Visit Provider Orthopaedic Surgery | DX: Z98.890 Other specified postprocedural states (principal) | CPT/HCPCS: 99024 ==

== ENCOUNTER → 2024-04-18 10:32 | Outpatient (BNVA) | payer MEDICARE, MEDICAID, SELFPAY | PROVIDERS: PCP Family Medicine; Visit Provider Orthopaedic Surgery | DX: Z98.890 Other specified postprocedural states (principal) | CPT/HCPCS: 99024 ==

== ENCOUNTER → 2024-05-11 10:35 | Outpatient (BNVA) | payer MEDICARE, MEDICAID, SELFPAY | PROVIDERS: PCP Family Medicine; Visit Provider Orthopaedic Surgery | DX: M54.6 Pain in thoracic spine (principal) | CPT/HCPCS: 72100; 99024 ==

== ENCOUNTER 2024-05-16 15:45 | Outpatient (CLI) | payer MEDICARE, MEDICAID, SELFPAY ==
--- NOTE | 2024-05-16 16:00 | MR_ITS ---
WS: [id number] MRI THORACIC SPINE noncontrast. HISTORY: back pain COMPARISON: Prior MRI lumbar spine 01/06/2024. TECHNIQUE: Multiplanar sequences are performed in sagittal and axial planes. New marrow edema consistent with fractures involving T10 and T11. Small amount of marrow edema along the inferior anterior endplate of T10. Diffuse marrow edema throughout nearly the entire T11 vertebra l body with mild wedging. Concave deformity along the LEFT lateral vertebral body. Marrow edema exten ds into the posterior elements. There is very slight bowing of the vertebral body but no contact on t he cord. There is no edema within the cord. T1-2 through T6-7: No significant stenosis. T7-8: Mild central disc bulge and facet arthritis. T8-9: Facet arthritis. T9-10: Moderate facet joint arthritis with encroachment and mild narrowing of the LEFT foramen. T10-11: Increasing facet joint arthropathy. Moderate bilateral foraminal stenosis. T11-12: Facet joint arthropathy moderate RIGHT and mild LEFT foraminal stenosis. Paravertebral soft tissues are negative. MR/MR thoracic spin wo con* [id number] IMPRESSION: 1. New fractures in T10 and T11 since 01/06/2024. 2. Small amount of marrow edema along the inferior endplate of T10. 3. Greater marrow edema throughout the T11 vertebral body extending into the p osterior elements with very slight bowing of the vertebral body. No cord contac t. 4. Facet joint arthropathy at most significant at T9-10 through T11-12. 5. No cord edema. There is a small amount of fluid in the facet joints and par avertebral soft tissues at T10 and T11.
--- NOTE | 2024-05-16 16:45 | MR_ITS ---
WS: [id number] MRI LUMBAR SPINE NONCONTRAST HISTORY: back pain, chronic pain. Possible discectomy in January 2024. COMPARISON: 01/06/2024 TECHNIQUE: Sagittal and axial multisequence imaging is submitted. Degenerative osteophytes and disc bulging in the cervical and thoracic spine. LEFT degenerative rotoscoliosis lumbar spine. Disc spaces are narrowed and desiccated. New marrow edema noted along the inferior endplate of T10 an d T11 vertebral body. This will be better evaluated on MRI thoracic spine being performed on the same day. Slight anterior wedging of L1. Advanced degenerative disc disease with chronic endplate changes are most significant at L1-2. 4 mm retrolisthesis L2 and L3 3. Conus terminates normally at L1-2 disc level. L1-L2: Mild disc bulging with facet joint arthropathy. Mild subarticular recess encroachment. L2-L3: Diffuse annular disc bulging with near complete effacement of CSF. Disc and osteophyte encroac hment upon the subarticular recesses and in the foramina. Severe central, bilateral subarticular rece ss and moderate to severe foraminal stenosis. Similar to the prior study. Most significant contact is on the traversing L3 nerve roots. L3-L4: Diffuse annular disc bulging with osteophytic ridging, ligamentum flavum and facet arthritis. LEFT foraminal disc protrusion. Severe central, bilateral subarticular recess and foraminal stenosis. Most significant contact on the traversing L4 nerve roots. Similar to the prior study. LEFT hemilami nectomy defect is noted. L4-L5: Moderate size central disc protrusion effacing ventral CSF and encroaching upon the subarticul ar recesses. Marked facet joint arthritis. Severe LEFT and moderate RIGHT foraminal stenosis. LEFT he milaminectomy defect is noted. L5-S1: Facet joint arthritis. Small central disc protrusion. Mild bilateral foraminal stenosis. Mild central stenosis. Postsurgical changes are noted posteriorly at L3-4 and L4-5. MR/MR lumbar spine wo con* [id number] IMPRESSION: 1. Interval LEFT hemilaminectomy defects at L3-4 and L4-5 since 01/06/2024. 2. Rotary scoliosis lumbar spine. Advanced degenerative arthropathy. 3. Central disc protrusion at L4-5 appears to have progressed with increasing subarticular recess encroachment. 4. L3-4: Severe central, bilateral subarticular recess and foraminal stenosis with contact on the traversing L4 nerve roots. 5. L4-5: Severe central and LEFT foraminal stenosis with moderate RIGHT forami nal stenosis. 6. L2-3: Severe central, bilateral subarticular recess and moderate foraminal stenosis.
== END 2024-05-16 15:46 | disposition home or self-care (01) ==
LOC: RAD 15:46
PROVIDERS: PCP Family Medicine; Visit Provider Orthopaedic Surgery
DX: M47.896 Other spondylosis, lumbar region (principal); M99.63 Osseous and subluxation stenosis of intervertebral foramina of lumbar region; M25.78 Osteophyte, vertebrae
CPT/HCPCS: 72146; 72148

== ENCOUNTER → 2024-05-25 16:16 | Outpatient (BNVA) | payer MEDICARE, MEDICAID, SELFPAY | PROVIDERS: PCP Family Medicine; Visit Provider Orthopaedic Surgery | DX: M25.552 Pain in left hip (principal); M54.9 Dorsalgia, unspecified | CPT/HCPCS: 36415; 73502; 80053; 81001; 85025; 99214 ==

== ENCOUNTER 2024-06-07 05:33 | Day surgery (SDC) | payer MEDICARE, MEDICAID, SELFPAY ==
--- NOTE | 2024-06-06 14:36 | P.ANESASSM_ITS ---
Pre-Anesthetic Assessment Height/Weight: Height 5 ft Operation Date: 06/07/24 07:00 Proposed Procedures p Kyphoplasty(Not Applicable) - Sandeep Javier, DO Anesthetic Plan Other: No prior issues with anesthesia NPO since yesterday evening History of GERD on omeprazole Hypothyroidism on Synthroid Labs 05/25/2024 reviewed and slept for procedure Prior EKG showing sinus rhythm Medications/Allergies Home Medications Medication Instructions Recorded Confirmed Last Taken Type grcfmon-awnqpcccvpogh-losdhphb 250 1 tab PO DAILY PRN Pain 08/04/23 05/30/24 05/28/24 History mg-250 mg-65 mg tablet (Excedrin Extra Strength) naloxone 4 mg/actuation nasal 1 spray intranasal Q3M 09/24/23 05/30/24 Unknown History spray (Narcan) Nutrafol 1 tab PO DAILY 01/19/24 05/30/24 05/28/24 History levothyroxine 75 mcg tablet 75 mcg PO DAILY #90 tabs 02/14/24 05/30/24 05/30/24 Rx modafinil 200 mg tablet 200 mg PO DAILY #30 tabs 02/22/24 05/30/24 05/28/24 Rx atorvastatin 40 mg tablet (Lipitor) 40 mg PO DAILY #90 tabs 03/08/24 05/30/24 05/30/24 Rx diazepam 5 mg tablet 5 mg PO BID PRN anxiety #60 tabs 05/09/24 05/30/24 05/27/24 Rx trazodone 100 mg tablet 200 mg (2 x 100 mg) PO BEDTIME PRN 05/09/24 05/30/24 05/29/24 Rx Sleep #60 tabs oxycodone-acetaminophen 5 mg-325 1 tab PO BID PRN pain 30 days #60 05/17/24 05/30/24 05/30/24 Rx mg tablet tabs omeprazole 40 mg capsule,delayed 40 mg PO DAILY 05/30/24 05/30/24 05/29/24 History release Allergies Allergy/AdvReac Type Severity Reaction Status Date / Time promethazine [From Phenergan] Allergy Intermediate restless Verified 06/06/24 12:07 leg sumatriptan [From Imitrex] Allergy unknown Verified 06/06/24 12:07 [facility] Anesthesia Medical History DJD (degenerative joint disease) of cervical spine Osteoarthritis of knees, bilateral Psychiatric care No pertinent past medical history neghx: dm,dvt/pe PCP: Dr. 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 Hernán Bauman at [facility] for atypical glandular cells of undetermined significance History of hysterectomy [facility], suspect BSO-- performed in [place] due to endometrial cancer. She is a poor historian. S/P repair of ventral hernia (06/11/21) Status post colonoscopy (06/10/21) History of ankle surgery Left H/O tubal ligation History of delivery Family History Grandmother Cancer paternal-female parts Other CAD (coronary artery disease) Hypertension Denies family history of Colon cancer Ovarian cancer Diabetes Clotting disorder Dementia Heart disease Hyperlipidemia Psychiatric illness Chronic kidney disease (CKD) Breast cancer Anesthesia complication Bleeding disorder Lung disease Uterine cancer Thyroid disease Stroke Social History Smoking and tobacco/nicotine status: unknown if used tobacco/nicotine Quit status (tobacco/nicotine): has quit using Year quit tobacco: 1999 Former quit date comment: 1 PPD for 30 years Second hand smoke exposure: No Alcohol intake: former Former alcohol use details: 02/13/21 Substance/Drug Use: never Lives independently: Yes Marital status: Number of children: 2 Elizabeth/Samaritan: Nondenominational Special elizabeth needs: Yes Agree to transfusion: No Data Anesthesia Cardiac Studies: No Data to Display
[2024-06-07] VITALS (12 sets, daily range): BP systolic 91–115; BP diastolic 58–87; PULSE 58–117; RESP 9–19; TEMP 36.2–36.8; O2SAT 92–100; BMI 27.3
--- NOTE | 2024-06-07 06:00 | SC_ITS ---
WS: [id number] C-ARM RADIOGRAPHS THORACIC SPINE; 4 IMAGES HISTORY: Surgery COMPARISON: None available. Intraoperative imaging during kyphoplasty procedure. There are 2 adjacent thoracic vertebral bodies i n the lower thoracic spine which have undergone kyphoplasty. SC/C-arm FL for Kyphoplasty IMPRESSION: Intraoperative imaging during thoracic kyphoplasty.
--- NOTE | 2024-06-07 06:22 | P.ANESASSM_ITS ---
Pre-Anesthetic Assessment Height/Weight: Height 5 ft Weight 140 lb Temp Pulse Resp BP Pulse Ox O2 Del Method 98.3 F 101 H 18 115/87 93 Room Air 06/07/24 06:00 06/07/24 06:00 06/07/24 06:00 06/07/24 06:00 06/07/24 06:00 06/07/24 06:09 Preop Diagnosis: T10 and T11 osteoporotic wedge compression fractures Operation Date: 06/07/24 07:00 Proposed Procedures p Kyphoplasty(Not Applicable) - Sandeep Javier, DO Was Beta Christopher taken within 24 hours: N/A Was Clonidine taken within 24 hours: N/A Last intake: Intake Last Liquid Date 06/06/24 Last Liquid Time 20:00 Last Solid Date 06/06/24 Last Solid Time 16:00 Social Alcohol and No alcohol Exam alert, oriented x 3, clear to auscultation bilaterally and regular rate & rhythm Airway Submandibular: within normal limits Cervical ROM: within normal limits Mallampati: Class III Dentition: full Comments: Comments: Multiple missing teeth on top Anesthetic Plan ASA status: 2 Anesthesia: General Other: No prior issues with anesthesia NPO since yesterday evening History of GERD on omeprazole Hypothyroidism on Synthroid Pentecostalism, declines blood products Prior EKG sinus rhythm Patient is able to perform ADLs, Plan for GETA Medications/Allergies Home Medications Medication Instructions Recorded Confirmed Last Taken Type xidvrgz-opfapcdrvzzau-iecexnda 250 1 tab PO DAILY PRN Pain 08/04/23 06/07/24 02/01/24 History mg-250 mg-65 mg tablet (Excedrin Extra Strength) naloxone 4 mg/actuation nasal 1 spray intranasal Q3M 09/24/23 05/30/24 Unknown History spray (Narcan) Nutrafol 1 tab PO DAILY 01/19/24 05/30/24 06/06/24 History levothyroxine 75 mcg tablet 75 mcg PO DAILY #90 tabs 02/14/24 05/30/24 06/06/24 Rx modafinil 200 mg tablet 200 mg PO DAILY #30 tabs 02/22/24 05/30/24 06/05/24 Rx atorvastatin 40 mg tablet (Lipitor) 40 mg PO DAILY #90 tabs 03/08/24 05/30/24 06/06/24 Rx diazepam 5 mg tablet 5 mg PO BID PRN anxiety #60 tabs 05/09/24 05/30/24 06/06/24 Rx trazodone 100 mg tablet 200 mg (2 x 100 mg) PO BEDTIME PRN 05/09/24 05/30/24 06/06/24 Rx Sleep #60 tabs omeprazole 40 mg capsule,delayed 40 mg PO DAILY 05/30/24 05/30/24 06/06/24 History release Allergies Allergy/AdvReac Type Severity Reaction Status Date / Time promethazine [From Phenergan] Allergy Intermediate restless Verified 06/06/24 12:07 leg sumatriptan [From Imitrex] Allergy unknown Verified 06/06/24 12:07 PFS Anesthesia Medical History DJD (degenerative joint disease) of cervical spine Osteoarthritis of knees, bilateral Psychiatric care No pertinent past medical history neghx: dm,dvt/pe PCP: Dr. 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 Hernán Bauman at [facility] for atypical glandular cells of un determined significance History of hysterectomy [facility], suspect BSO-- performed in [place] due to endometrial cancer. She is a poor historian. S/P repair of ventral hernia (06/11/21) Status post colonoscopy (06/10/21) History of ankle surgery Left H/O tubal ligation History of delivery Family History Grandmother Cancer paternal-female parts Other CAD (coronary artery disease) Hypertension Denies family history of Colon cancer Ovarian cancer Diabetes Clotting disorder Dementia Heart disease Hyperlipidemia Psychiatric illness Chronic kidney disease (CKD) Breast cancer Anesthesia complication Bleeding disorder Lung disease Uterine cancer Thyroid disease Stroke Social History Smoking and tobacco/nicotine status: unknown if used tobacco/nicotine Quit status (tobacco/nicotine): has quit using Year quit tobacco: 1999 Former quit date comment: 1 PPD for 30 years Second hand smoke exposure: No Alcohol intake: former Former alcohol use details: 02/13/21 Substance/Drug Use: never Lives independently: Yes Marital status: Number of children: 2 Elizabeth/Shinto: Pentecostalism Special elizabeth needs: Yes Agree to transfusion: No Data Anesthesia Cardiac Studies: No Data to Display
[2024-06-07] MEDS: sodium chloride 0.9% 1,000 ML 30 ML IV (06:34)
--- NOTE | 2024-06-07 06:37 | W.PM.OPSUD ---
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
[2024-06-07] MEDS: ceFAZolin 2,000 mg SDV 2000 MG IVP (06:59)
[2024-06-07] MEDS: lidocaine-epi 1% 20 mL INJ INJECTION (07:35)
--- NOTE | 2024-06-07 08:19 | PM.OP ---
Operative Report Date of procedure: June 07, 2024 Pre-op diagnosis: T10 and T11 wedge osteoporotic traumatic compression fractures Post-op diagnosis: same Procedure done: 1. T10 kyphoplasty 2. T11 kyphoplasty Surgeon: Sandeep Javier DO Estimated blood loss (mL): 5 Procedure: 1. T10 kyphoplasty 2. T11 kyphoplasty Patient's body habitus made after an Gonasi was placed in the prone position. All his impingement well-padded. Patient's prepped draped normal sterile fashion. Skin incision was made over the T11 left pedicle. Awl was inserted followed by the drill followed by the balloon. At this point folic needed to get more before with the balloon so went all to the right pedicle. The skin incision made awl was inserted in the right pedicle drill was inserted and balloon was inflated. Cement was then placed in the T11 vertebrae AP lateral fluoroscopy ensured that the cement was in good position. Extension was brought to the T10 level. This incision made over the T10 lateral to the pedicle. Awl was inserted down to the pedicle. AP lateral fluoroscopy ensured that the awl was in good position followed by the drill followed by balloon had good filled with the balloon. Balloon was deflated removed. And then cement was injected. AP lateral fluoroscopy showed that the cement was in good position no breaches. Wounds irrigated and closed with nylon suture. Sterile dressings applied patient transferred to the PACU in stable condition.
[2024-06-07] MEDS: fentaNYL 50 mcg/mL INJ 2mL IVP (08:25)
[2024-06-07] MEDS: HYDROcodone-acetaminophen 5-325 mg Tablet 1 TAB PO (09:25)
--- NOTE | 2024-06-07 09:57 | ANE.PACU2 ---
Inpatient post-anesthesia follow up: Airway intact: Yes Vital signs: Temperature 97.2 F Pulse Rate 64 Respiratory Rate 17 Blood Pressure 108/72 Pulse Oximetry 92 Oxygen Delivery Me thod Room Air Oxygen Flow Rate 3 Fraction of Inspir ed Oxygen Hydration adequate: Yes Nausea and vomiting: No Pain level: 1 Mental status: Baseline
== END 2024-06-07 09:57 | disposition home or self-care (01) ==
PROVIDERS: PCP Family Medicine; Visit Provider Orthopaedic Surgery
PROC: (CPT 22513; principal; 2024-06-07 07:00)
DX: S22.070A Wedge compression fracture of T9-T10 vertebra, initial encounter for closed fracture (principal); S22.080A Wedge compression fracture of T11-T12 vertebra, initial encounter for closed fracture; X58.XXXA Exposure to other specified factors, initial encounter; K21.9 Gastro-esophageal reflux disease without esophagitis; E03.9 Hypothyroidism, unspecified; I10 Essential (primary) hypertension; F41.9 Anxiety disorder, unspecified; Z87.891 Personal history of nicotine dependence
CPT/HCPCS: 22513; 22515; 76000; J0690; J1100; J2405; J2704; J3010; J3490; J7030

== ENCOUNTER → 2024-06-27 10:15 | Outpatient (BNVA) | payer MEDICARE, MEDICAID, SELFPAY | PROVIDERS: PCP Family Medicine; Visit Provider Orthopaedic Surgery | DX: Z98.890 Other specified postprocedural states (principal) | CPT/HCPCS: 99213 ==

== ENCOUNTER 2024-07-13 12:41 | Outpatient (RCR) | payer MEDICARE, MEDICAID, SELFPAY | END 2024-08-08 23:59 | disposition home or self-care (01) | LOC: SPT 12:41 | PROVIDERS: Visit Provider Orthopaedic Surgery | DX: S22.080D Wedge compression fracture of T11-T12 vertebra, subsequent encounter for fracture with routine healing (principal); X58.XXXD Exposure to other specified factors, subsequent encounter | CPT/HCPCS: 97032; 97110; 97162; 97530; G0283 ==

== ENCOUNTER → 2024-08-03 15:14 | Outpatient (BNVA) | payer MEDICARE, MEDICAID, SELFPAY | PROVIDERS: Visit Provider Family Medicine | DX: E03.9 Hypothyroidism, unspecified (principal) | CPT/HCPCS: 84439; 84443 ==

== ENCOUNTER 2024-08-09 06:30 | Outpatient (RCR) | payer MEDICARE, MEDICAID, SELFPAY | END 2024-09-08 23:59 | disposition home or self-care (01) | LOC: SPT 06:30 | PROVIDERS: Visit Provider Orthopaedic Surgery | DX: S22.080D Wedge compression fracture of T11-T12 vertebra, subsequent encounter for fracture with routine healing (principal); X58.XXXD Exposure to other specified factors, subsequent encounter | CPT/HCPCS: 97032; 97110; G0283 ==

== ENCOUNTER 2024-09-09 06:00 | Outpatient (RCR) | payer MEDICARE, MEDICAID, SELFPAY | END 2024-10-06 23:59 | disposition home or self-care (01) | LOC: SPT 06:00 | PROVIDERS: Visit Provider Orthopaedic Surgery | DX: S22.080D Wedge compression fracture of T11-T12 vertebra, subsequent encounter for fracture with routine healing (principal); X58.XXXD Exposure to other specified factors, subsequent encounter | CPT/HCPCS: 97110; G0283 ==

== ENCOUNTER → 2024-10-05 13:34 | Outpatient (BNVA) | payer MEDICARE, MEDICAID, SELFPAY | PROVIDERS: Visit Provider Orthopaedic Surgery | DX: S22.070A Wedge compression fracture of T9-T10 vertebra, initial encounter for closed fracture (principal); S22.080A Wedge compression fracture of T11-T12 vertebra, initial encounter for closed fracture; X58.XXXA Exposure to other specified factors, initial encounter | CPT/HCPCS: 99213 ==

== ENCOUNTER → 2024-12-18 14:37 | Outpatient (BNVA) | payer MEDICARE, MEDICAID, SELFPAY | PROVIDERS: PCP Family Medicine; Visit Provider Family Medicine | DX: E03.9 Hypothyroidism, unspecified (principal); E78.5 Hyperlipidemia, unspecified | CPT/HCPCS: 80053; 80061; 84439; 84443; 85025 ==

== ENCOUNTER → 2024-12-28 08:35 | Outpatient (BNVA) | payer MEDICARE, MEDICAID, SELFPAY | PROVIDERS: PCP Family Medicine; Visit Provider Orthopaedic Surgery | DX: M48.062 Spinal stenosis, lumbar region with neurogenic claudication (principal) | CPT/HCPCS: 72100; 99213 ==

== ENCOUNTER 2025-01-04 14:14 | Outpatient (CLI) | payer MEDICARE, MEDICAID, SELFPAY ==
--- NOTE | 2025-01-04 14:30 | MRR_ITS ---
PROCEDURE INFORMATION: Exam: MR Thoracic Spine Without Contrast Exam date and time: 01/04/2025 2:26 PM Age: 64 years old Clinical indication: Pain and injury or trauma; Other: Lifting injury; Sprain or strain; Pain in thoracic spine; Injury details: Injured back lifting amp; Prior surgery; Surgery date: 6+ months; Surgery type: Ankle, low back, hyster, ; HX of endometrial cancer; Additional info: Back pain TECHNIQUE: Imaging protocol: Magnetic resonance imaging of the thoracic spine without contrast. COMPARISON: MR thoracic spin wo con* [id number] 05/16/2024 4:28 PM FINDINGS: Bones/joints: Moderate convex left curvature at the thoracolumbar junction. There is trace degenerative anterolisthesis of T10 on T11. There is mild loss of vertebral body height at superior endplate of T11. There is vertebroplasty cement at T10 and T11. There are mild generalized disc bulges at T10-11 and T11-12. There is no bone marrow edema. There is mild multilevel lower thoracic facet spondylosis. There is mild spinal stenosis at T11-12. Spinal cord: The spinal cord is unremarkable. There is no abnormal signal or cord compression. Soft tissues: Paraspinal soft tissues are unremarkable. MR/MR thoracic spin wo con* [id number] IMPRESSION: Lower thoracic scoliosis and degenerative disease with mild spinal stenosis at T11-12. The degree of spinal stenosis is not significantly changed since 05/16/2024.
== END 2025-01-04 14:15 | disposition home or self-care (01) ==
PROVIDERS: PCP Family Medicine; Visit Provider Orthopaedic Surgery
DX: M54.9 Dorsalgia, unspecified (principal); M41.9 Scoliosis, unspecified; M48.04 Spinal stenosis, thoracic region
CPT/HCPCS: 72146

== ENCOUNTER → 2025-01-18 08:02 | Outpatient (BNVA) | payer MEDICARE, MEDICAID, SELFPAY | PROVIDERS: PCP Family Medicine; Visit Provider Orthopaedic Surgery | DX: Z09 Encounter for follow-up examination after completed treatment for conditions other than malignant neoplasm (principal) | CPT/HCPCS: 99213 ==

== ENCOUNTER → 2025-04-16 11:51 | Outpatient (BNVA) | payer MEDICARE, MEDICAID, SELFPAY | PROVIDERS: PCP Family Medicine; Visit Provider Family Medicine | DX: E03.9 Hypothyroidism, unspecified (principal) | CPT/HCPCS: 80053; 84439; 84443 ==

== ENCOUNTER 2025-04-28 10:49 | Emergency (ER) | payer MEDICARE, MEDICAID, SELFPAY ==
--- OUTSIDE RECORDS SUMMARY | 2024-06-03 04:00 | XMS_ITS ---
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
--- OUTSIDE RECORDS SUMMARY | 2024-06-04 04:00 | XMS_ITS ---
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 Name Role Phone Juana Garcia Primary Care Provider Migration, Provider Unavailable Unavailable Allergies Allergen (clinical drug ingredient) Drug/Non Drug Allergy documented on EMR Reaction Allergy Type Onset Date Status Information temporarily unavailable Imitrex Intensified ABARCA Drug Allergy Active Information temporarily unavailable Phenergan RLS Drug Allergy Active REASON FOR VISIT EMR-Dg Medications Medication SIG (Take, Route, Frequency, Duration) Notes Start Date End Date Status HYDROcodone-Acetamino phen *[facility]* Active Trintellix *[facility]* Active Levothyroxine *[facility] and Interaction Alerts* Active trazodone *[facility] and Interaction Alerts* Active Wellbutrin *[facility] and Interaction Alerts* Active Valium *Pick strength-f [facility]m [facility] for [facility]* Active Social History Social History Additional Details Category Social Info Options Details Migrated Social History Migrated Social History Alcoholic beverages? - No, Applying for disability? - No, Are you or is there a chance you could be - No, Currently on disability? - No, Drug or substance abuse? - No, exposure to toxins/poisonous substances at work - No, Involved in any legal proceedings or lawsuits? - No, Marital Status - , Nonprescription drug use? - No, Participation in detoxification or rehabilitation - No, Smoked in the past? - No, Smoking - No, Smoking status (MU) - Never smoker, Working currently? - No Encounters Encounter Location Date Provider Diagnosis Migrated_Facility 0 0 06/04/2024 Provider Migration Plan Of Treatment No Information Progress Notes * Eun ROMANDOB:1960 (64 yo F)Acc No.[id number]:06/04/2024 Patient: Eun SANDY :1960 A ge:63 Y S ex:Female Address:[address] [place] [address] Subjective: * Chief Complaints: * E MR-Dg * Medical History: Arthritis, B ronchitis, C ancer, D epression, M igraines, T hyroid disease, * Surgical History: Back surgery section Hysterectomy Tubal ligation * Family History: M igrated Family History: : Cancer, H eart disease, l upus. * Social History: M igrated Social History: M igrated Social History: Alcoholic beverages? - No, A pplying for disability? - No, A re you or is there a chance you could be - No, C urrently on disability? - No, D rug or substance abuse? - No, e xposure to toxins/poisonous substances at work - No, I nvolved in any legal proceedings or lawsuits? - No, M arital Status - , N onprescription drug use? - No, P articipation in detoxification or rehabilitation - No, S moked in the past? - No, S moking - No, S moking status (MU) - Never smoker, W orking currently? - No. * Medications: T akingValium , Notes to Pharmacist: *Pick strength-form from [facility] for eRX*Levothyroxine , Notes to Pharmacist: *Reorder from [facility] for eRx and Interaction Alerts*Wellbutrin , Notes to Pharmacist: *Reorder from [facility] for eRx and Interaction Alerts*HYDROcodone-Acetaminophen , Notes to Pharmacist: *Pick strength-form from [facility] for eRX*Trintellix , Notes to Pharmacist: *Pick strength-form from [facility] for eRX*trazodone , Notes to Pharmacist: *Reorder from [facility] for eRx and Interaction Alerts*Taking Valium , Notes to Pharmacist: *Pick strength-form from [facility] for eRX*Taking Levothyroxine , Notes to Pharmacist: *[facility]*Taking Wellbutrin , Notes to Pharmacist: *[facility]*Taking HYDROcodone-Acetaminophen , Notes to Pharmacist: *[facility]*Taking Trintellix , Notes to Pharmacist: *[facility]*Taking trazodone , Notes to Pharmacist: *[facility] Interaction [facility]* * Allergies: I mitrex: Intensified ABARCA - AllergyPhenergan: RLS - Allergy * * Date:
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
--- OUTSIDE RECORDS SUMMARY | 2025-04-28 10:52 | XMS_ITS | Encounter Summary ---
Author Organization [facility] Address [address] [place] [address] Care Team Providers Care Superintendent Custodian Janitor Name Role Phone Yosi ALLEN MD, Lemuel Cueva Primary Care Provider + Encounter Details Date Type Department Care Team (Latest Contact Info) Description 10/05/2000 Outpatient Historical [facility] Antonio Combs NO ADDRESS ON FILE Acute sinusitis, unspecified (Primary Dx) Social History Tobacco Use Types Packs/Day Years Used Date Smoking Tobacco: Never Assessed Comments Unknown Sex and Gender Information Value Date Recorded Sex Assigned at Not on file 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
--- OUTSIDE RECORDS SUMMARY | 2025-04-28 10:52 | XMS_ITS | Encounter Summary ---
Author Organization [facility] Address [address] [place] [address] Care Team Providers Care General Manager In Training Name Role Phone Yosi ALLEN MD, Lemuel Cueva Primary Care Provider + Encounter Details Date Type Department Care Team (Latest Contact Info) Description 04/23/1999 Outpatient Historical [facility] Antonio Combs NO ADDRESS ON FILE Migraine, unspecified, without mention of intractable migraine without mention of status migrainosus (Primary Dx); Other abnormal clinical finding Social History Tobacco Use Types Packs/Day Years Used Date Smoking Tobacco: Never Assessed Comments Unknown Sex and Gender Information Value Date Recorded Sex Assigned at Not on file 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 Sex Female 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
--- OUTSIDE RECORDS SUMMARY | 2025-04-28 10:52 | XMS_ITS | Encounter Summary ---
Author Organization [facility] Address [address] [place] [address] Care Team Providers Care Dye Reel Operator Helper Name Role Phone Yosi ALLEN MD, Lemuel Cueva Primary Care Provider + Encounter Details Date Type Department Care Team (Latest Contact Info) Description 01/10/1999 Outpatient Historical [facility] Antonio Combs NO ADDRESS ON FILE Sprain of neck (Primary Dx) Social History Tobacco Use Types Packs/Day Years Used Date Smoking Tobacco: Never Assessed Comments Unknown Sex and Gender Information Value Date Recorded Sex Assigned at Not on file 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
--- OUTSIDE RECORDS SUMMARY | 2025-04-28 10:52 | XMS_ITS | Clinical Summary ---
Author Organization [facility] Address [address] [facility] Attn: [place] [address] Care Team Providers Care Steel Plate Printer Name Role Phone Yosi ALLEN MD, Lemuel A Primary Care Provider + Allergies Active Allergy Reactions Criticality Noted Date Comments Meprobamate Unknown 05/23/2010 Sumatriptan Succinate Other (See Comments),Headache Low 05/24/2010 Active Problems Problem Noted Date Diagnosed Date Hemorrhage of rectum and anus 05/25/2010 Iron deficiency anemia, unspecified 05/25/2010 Hypotension 05/24/2010 Anemia due to blood loss 05/24/2010 GI bleed 05/24/2010 Family History Medical History Relation Name Comments Colon Cancer Neg Hx Social History Tobacco Use Types Packs/Day Years Used Date Smoking Tobacco: Former Comments:Quit smokin ye ars ago Alcohol Use Standard Drinks/Week Comments No 0 (1 standard drink = 0.6 oz pur e alcohol) Comments Unknown Sex and Gender Information Value Date Recorded Sex Assigned at Not on file Legal Sex Female 6:15 AM UNIVERSAL BANKER Gender Identity Not on file Sexual Orientation Not on file Plan of Treatment Health Maintenance Due Date Last Done Comments DTAP/TDAP/TD VACCINES (1 - Tdap) 1977 BREAST CANCER SCREENING 1998 COLORECTAL SCREENING 12/14/2003 Colorectal Cancer Screening 12/14/2003 FIT-DNA Q 3 years 12/14/2003 FIT/FOBT Q 1 year 12/14/2003 Flex Sig/CT Colonography Q 5 years 12/14/2003 PNEUMOCOCCAL VACCINE 50+ YEARS (1 of 1 - PCV) 12/14/19 09 ZOSTER VACCINE (1 of 2) 2008 OSTEOPOROSIS SCREENING 12/14/2023 INFLUENZA VACCINE (#1) 2025 RSV VACCINE (60+ or ) (1 - 1-dose 75+ series) 2033 Care Teams Steel Plate Printer Relationship Specialty Start Date End Date Lemuel Deluca II, MD [address] [place] [id number] PCP - General Family Practice 06/10/10
--- OUTSIDE RECORDS SUMMARY | 2025-04-28 10:52 | XMS_ITS | Encounter Summary ---
Author Organization [facility] Address [address] [place] [address] Care Team Providers Care Deck Builder Name Role Phone Yosi ALLEN MD, Lemuel Cueva Primary Care Provider + Encounter Details Date Type Department Care Team (Latest Contact Info) Description 04/03/1999 Outpatient Historical [facility] Janes Allen MD [address] [place] [id number] Unspecified disorder of thyroid (Primary Dx); Other and unspecified noninfectious gastroenteritis and colitis(558.9) Social History Tobacco Use Types Packs/Day Years Used Date Smoking Tobacco: Never Assessed Comments Unknown Sex and Gender Information Value Date Recorded Sex Assigned at Not on file Legal Sex Female 6:30 AM CHIEF STEWARD/STEWARDESS Gender Identity Not on file Sexual Orientation Not on file documented as of this encounter Plan of Treatment Not on file documented as of this encounter Visit Diagnoses Diagnosis Unspecified disorder of thyroid- Primary Other and unspecified noninfectious gastroenteritis and colitis(558.9) Other and unspecified noninfectious gastroenteritis and colitis documented in this encounter Care Teams Deck Builder Relationship Specialty Start Date End Date Lemuel Deluca II, MD [address] [place] [address] PCP - General Family Practice 06/10/10 documented as of this encounter
--- OUTSIDE RECORDS SUMMARY | 2025-04-28 10:52 | XMS_ITS | Encounter Summary ---
Author Organization [facility] Address [address] [place] [address] Care Team Providers Care Operator Cavity Pump Name Role Phone Yosi ALLEN MD, Lemuel Cueva Primary Care Provider + Encounter Details Date Type Department Care Team (Latest Contact Info) Description 06/18/2000 Outpatient Historical [facility] Antonio Combs NO ADDRESS ON FILE Migraine, unspecified, without mention of intractable migraine without mention of status migrainosus (Primary Dx); Generalized anxiety disorder; Depressive disorder, not elsewhere classified Social History Tobacco Use Types Packs/Day Years Used Date Smoking Tobacco: Never Assessed Comments Unknown Sex and Gender Information Value Date Recorded Sex Assigned at Not on file Legal Sex Female 6:30 AM CLINICAL RESEARCH MANAGEMENT ASSOCIATE Gender Identity Not on file Sexual Orientation Not on file documented as of this encounter Plan of Treatment Not on file documented as of this encounter Visit Diagnoses Diagnosis Migraine, unspecified, without mention of intractable migraine without mention of status migrainosus- Primary Generalized anxiety disorder Depressive disorder, not elsewhere classified documented in this encounter Care Teams Operator Cavity Pump Relationship Specialty Start Date End Date Lemuel Deluca II, MD [address] [place] [address] PCP - General Family Practice 06/10/10 documented as of this encounter
--- OUTSIDE RECORDS SUMMARY | 2025-04-28 10:52 | XMS_ITS | Encounter Summary ---
Author Organization [facility] Address [address] [place] [address] Care Team Providers Care Ground Service Equipment Mechanic Name Role Phone Yosi ALLEN MD, Lemuel Cueva Primary Care Provider + Encounter Details Date Type Department Care Team (Latest Contact Info) Description 02/26/1999 Outpatient Historical [facility] Antonio Combs NO ADDRESS ON FILE Esophageal reflux (Primary Dx); Skin sensation disturb Social History Tobacco Use Types Packs/Day Years Used Date Smoking Tobacco: Never Assessed Comments Unknown Sex and Gender Information Value Date Recorded Sex Assigned at Not on file Legal Sex Female 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
--- OUTSIDE RECORDS SUMMARY | 2025-04-28 10:52 | XMS_ITS | Encounter Summary ---
Author Organization [facility] Address [address] [place] [address] Care Team Providers Care Aircraft Steel Fabricator Name Role Phone Yosi ALLEN MD, Lemuel Cueva Primary Care Provider + Encounter Details Date Type Department Care Team (Latest Contact Info) Description 04/08/1999 Outpatient Historical [facility] Antonio Combs NO ADDRESS ON FILE Diverticulitis of colon (Primary Dx); Screening for malignant neoplasm of the cervix Social History Tobacco Use Types Packs/Day Years Used Date Smoking Tobacco: Never Assessed Comments Unknown Sex and Gender Information Value Date Recorded Sex Assigned at Not on file 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
--- OUTSIDE RECORDS SUMMARY | 2025-04-28 10:52 | XMS_ITS | Encounter Summary ---
Author Organization [facility] Address [address] [place] [address] Care Team Providers Care Credit Processor Name Role Phone Yosi ALLEN MD, Lemuel Cueva Primary Care Provider + Encounter Details Date Type Department Care Team (Latest Contact Info) Description 07/05/2000 Outpatient Historical [facility] Antonio Combs NO ADDRESS ON FILE Other specified menopausal and postmenopausal disorder (Primary Dx); Generalized anxiety disorder Social History Tobacco Use Types Packs/Day Years Used Date Smoking Tobacco: Never Assessed Comments Unknown Sex and Gender Information Value Date Recorded Sex Assigned at Not on file Legal Sex Female 6:30 AM NURSING 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
--- OUTSIDE RECORDS SUMMARY | 2025-04-28 10:52 | XMS_ITS | Encounter Summary ---
Author Organization [facility] Address [address] [place] [address] Care Team Providers Care Supervisor Inspecting Name Role Phone Yosi ALLEN MD, Lemuel Cueva Primary Care Provider + Encounter Details Date Type Department Care Team (Latest Contact Info) Description 08/16/2000 Outpatient Historical [facility] Antonio Combs NO ADDRESS ON FILE Migraine, unspecified, without mention of intractable migraine without mention of status migrainosus (Primary Dx); Nausea alone; Generalized anxiety disorder Social History Tobacco Use Types Packs/Day Years Used Date Smoking Tobacco: Never Assessed Comments Unknown Sex and Gender Information Value Date Recorded Sex Assigned at Not on file Legal Sex Female 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
--- OUTSIDE RECORDS SUMMARY | 2025-04-28 10:52 | XMS_ITS | Patient Health Record ---
Author Organization [facility] Address [address] [place] [address] Care Team Providers Care Wood Tank Erector Name Role Phone RadhaJuana Primary Care Provider Migration, Provider Unavailable Unavailable Allergies Allergen (clinical drug ingredient) Drug/Non Drug Allergy documented on EMR Reaction Allergy Type Onset Date Status Information temporarily unavailable Imitrex Intensified ABARCA Drug Allergy Active Information temporarily unavailable Phenergan RLS Drug Allergy Active Reason For Referral No Information Medications Medication SIG (Take, Route, Frequency, Duration) Notes Start Date End Date Status Meloxicam 7.5 MG Tablet TAKE 1 TABLET BY MOUTH EVERY DAY; Duration: 30 Active Vitamin D (Ergocalciferol) 1.25 MG (24372 UT) Capsule TAKE 1 CAPSULE BY MOUTH 1 TIME A WEEK; Duration: 28 Active Valium *[facility]* Active Wellbutrin *Reorder from [facility] for eRx and Interaction Alerts* Active HYDROcodone-Acetamino phen *[facility] for [facility]* Active traZODone HCl 100 MG Tablet 2.5 tablets Orally Once a day; Duration: 30 day(s) Managed by Dr. Edmonds Jeannine Active Escitalopram Oxalate 10 MG Tablet 1 tablet Orally Once a day Dr. Grey HERNADEZ Active Trintellix *Pick strength-f orm from [facility] for eRX* Active Levothyroxine Sodium 75 MCG Tablet 1 tablet in the morning on an empty stomach Orally Once a day; Duration: 30 days Active Alendronate Sodium 70 MG Tablet 1 tablet 30 minutes before the first food, beverage or medicine of the day with plain water Orally weekly; Duration: 30 day(s) 12/17/2020 Active Levothyroxine *Reorder from [facility] for eRx and Interaction Alerts* Active trazodone *[facility] for [facility] and Interaction Alert[facility]* Active Metoprolol Succinate ER 25 MG Tablet Extended Release 24 Hour 1 tablet Orally Once a day; Duration: 30 Active Famotidine 20 MG Tablet TAKE 2 TABLETS BY MOUTH EVERY DAY NEEDED; Duration: 30 Active Immunizations Vaccine Route Administration Date Status Comme nts COVID-19 Vaccine (Moderna) Dose #1 Unknown 11/23/2020 A dministered COVID-19 Vaccine (Moderna) Dose #2 Unknown 01/02/2021 A dministered Social History Tobacco Use: Social History Observation Description Date Details (start date - stop date) Former Smoker NA - NA Social History Depression Screening Social Info Question Answer Notes PHQ-9 Little interest or pleasure in doing thin gs Several days Feeling down, depressed, or hopeless Several day s Trouble falling or staying asleep, or sleeping t oo much More than half the days Feeling tired or having little energy More than half the days Poor appetite or overeating Several days Feeling bad about yourself, or that you are a failure, or have let yourself or your family down Several days Trouble concentrating on thi ngs, such as reading the newspaper or watching television More than half the days Moving or speaking so slowly that other people could have noticed. Or the opposite ? being so fidgety or restless that you have been moving around a lot more than usual Not at all Thoughts that you would be b monalisa off , or of hurting yourself in some way Not at all Total Score 10 Interpretation Moderate Depression Drugs/Alcohol: Social Info Question Answer Notes Alcohol Screen (Audit-C) Did you have a drink containing alcohol in the past year? Yes How often did you have a drink containing alcohol in the past year? 2 to 3 times a week (3 points) How many drinks did you have on a typical day when you were drinking in the past year? 1 or 2 drinks (0 point) How often did you have 6 or more drinks on one occasion in the past year? Never (0 point) Points 3 Interpretation Positive Drugs Have you used drugs other than those for medical reasons in the past 12 months? No Household: Social Info Question Answer Notes Household Marital status: Tobacco Use: Social Info Question Answer Notes Screening Not Performed: Do you smoke? No At what age did you start smoking? Patient stopped smoking over 20 years ago and has a 30+ pack history. xTobacco Use/Smoking Are you a former smoker How long has it been since you last smoked? > 10 years Tobacco use other than smoking: Are you an other tobacco user? No Additional Details Category Social Info Options Details Drugs/Alcohol: Do you smoke marijuana? De nies Migrated Social History Migrated Social History Alcoholic [...] - Never smoker, Working currently? - No Household: Drugs Have you used d rugs other than those for medical reasons in the past 12 months? No Alcohol Screen (Audit-C) Did you have a drink containing alcohol in the past year?: Yes, How often did you have a drink containing alcohol in the past year?: 4 or more times a week (4 points), How many drinks did you have on a typical day when you were drinking in the past year?: 1 or 2 drinks (0 point), How often did you have 6 or more drinks on one occasion in the past year?: Never (0 point), Points: 4, Interpretation: Positive Do you smoke marijuana? Denies Problems Problem Type SNOMED Code ICD Code Onset Dates Problem Status W/U Status Risk Notes Problem Chronic cluster headache (025608579) Chronic cluster headache, not intractable (G44.029) Active confirmed Problem Chronic pain (17146443) Other chronic pain (G89.29) Active confirmed Problem Essential hypertension (70647722) Essential hypertension (I10) Active confirmed Problem Gastroesophageal reflux disease without esophagitis (662950077) Gastroesophageal reflux disease without esophagitis (K21.9) Active confirmed Problem Vitamin D deficiency (62347998) Vitamin D deficiency (E55.9) Active confirmed Problem Osteoporosis (72737743) Osteoporosis (M81.0) Active confirmed Problem Acquired hypothyroidism (801007390) Acquired hypothyroidism (E03.9) Active confirmed Problem Osteoarthritis of knee (409533050) Degenerative arthritis of knee (715.18) 019 Inactive confirmed [facility]-985 911- Problem Macrocytosis (97286769) Macrocytosis (D75.89) Active confirmed Encounters Encounter Location Date Provider Diagnosis Migrated_Facility 0 0 06/03/2024 Provider Migration Migrated_Facility 0 0 06/04/2024 Provider Migration Plan Of Treatment No Information Insurance Providers Payer Name Payer Address Payer Phone Subscriber Number Group Number Insured Name Patient Relationship to Insured Coverage Start Date Coverage End Date [place] [address] [place] [address] [phone] [id number] Eun Zimmerman Self - patient is the insured Medical (General) History Medical History History ICD Code Degenerative arthritis of knee Generalized anxiety disorder Depression Endometrial cancer- diagnosed 2012 Insomnia Essential hypertension I10 Gastroesophageal reflux disease without esophagitis K21.9 Acquired hypothyroidism E03.9 Surgical History Surgery Date(Month/Year) C-sections x 2 1982, 1987 Fracture of left ankle 01/2019 Tonsillectomy at age 14 hysterectomy 2013 Back surgery section Hysterectomy Tubal ligation Hospitalization History Reason Date(Month/Year) Tonsillectomy Hysterectomy Fracture repair of left ankle Childbirth; C-sections
--- OUTSIDE RECORDS SUMMARY | 2025-04-28 10:52 | XMS_ITS | Encounter Summary ---
Author Organization [facility] Address [address] [place] [address] Care Team Providers Care Gas Manager Name Role Phone Yosi ALLEN MD, Lemuel Cueva Primary Care Provider + Encounter Details Date Type Department Care Team (Latest Contact Info) Description 10/29/2000 Outpatient Historical [facility] Antonio Combs NO ADDRESS ON FILE Migraine, unspecified, without mention of intractable migraine without mention of status migrainosus (Primary Dx); Other specified menopausal and postmenopausal disorder; Anxiety state, unspecified Social History Tobacco Use Types Packs/Day Years Used Date Smoking Tobacco: Never Assessed Comments Unknown Sex and Gender Information Value Date Recorded Sex Assigned at Not on file 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
--- OUTSIDE RECORDS SUMMARY | 2025-04-28 10:52 | XMS_ITS | Encounter Summary ---
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 or other cause, with mention of thyrotoxic crisis or storm Social History Tobacco Use Types Packs/Day Years Used Date Smoking Tobacco: Never Assessed Comments Unknown Sex and Gender Information Value Date Recorded Sex Assigned at Not on file Legal Sex Female 6:30 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
--- OUTSIDE RECORDS SUMMARY | 2025-04-28 10:52 | XMS_ITS | Encounter Summary ---
Author Organization [facility] Address [address] [place] [address] Care Team Providers Care Acreage Reporter Name Role Phone Yosi ALLEN MD, Lemuel Cueva Primary Care Provider + Encounter Details Date Type Department Care Team (Latest Contact Info) Description 02/03/1999 Outpatient Historical [facility] Antonio Combs NO ADDRESS ON FILE Thyrotoxicosis without mention of goiter or other cause, without mention of thyrotoxic crisis or storm (Primary Dx); Generalized anxiety disorder Social History Tobacco Use Types Packs/Day Years Used Date Smoking Tobacco: Never Assessed Comments Unknown Sex and Gender Information Value Date Recorded Sex Assigned at Not on file 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
--- OUTSIDE RECORDS SUMMARY | 2025-04-28 10:53 | XMS_ITS | Encounter Summary ---
Author Organization [facility] Address [address] [place] [address] Care Team Providers Care Disability Attorney Name Role Phone Yosi ALLEN MD, Lemuel Cueva Primary Care Provider + Encounter Details Date Type Department Care Team (Latest Contact Info) Description 10/24/1999 Outpatient Historical [facility] Antonio Combs NO ADDRESS ON FILE Coronary atherosclerosis of unspecified type of vessel, penobscot or graft (Primary Dx); Headache(784.0); Other and unspecified hyperlipidemia; Unspecified hypothyroidism Social History Tobacco Use Types Packs/Day Years Used Date Smoking Tobacco: Never Assessed Comments Unknown Sex and Gender Information Value Date Recorded Sex Assigned at Not on file Legal Sex Female 6:30 AM CAR WASH SUPERVISOR Gender Identity Not on file Sexual Orientation Not on file documented as of this encounter Plan of Treatment Not on file documented as of this encounter Visit Diagnoses Diagnosis Coronary atherosclerosis of unspecified type of vessel, penobscot or graft- Primary Headache(784.0) Headache Other and unspecified hyperlipidemia Unspecified hypothyroidism documented in this encounter Care Teams Disability Attorney Relationship Specialty Start Date End Date Lemuel Deluca II, MD [address] [place] [phone] PCP - General Family Practice 06/10/10 documented as of this encounter
--- OUTSIDE RECORDS SUMMARY | 2025-04-28 10:53 | XMS_ITS | Encounter Summary ---
Author Organization [facility] Address [address] [place] [address] Care Team Providers Care Disposal Operator Name Role Phone Yosi ALLEN MD, Lemuel Cueva Primary Care Provider + Encounter Details Date Type Department Care Team (Latest Contact Info) Description 10/24/1998 Outpatient Historical [facility] Janes Allen MD [address] [place] [id number] Unspecified hypothyroidism (Primary Dx); Depressive disorder, not elsewhere classified Social History Tobacco Use Types Packs/Day Years Used Date Smoking Tobacco: Never Assessed Comments Unknown Sex and Gender Information Value Date Recorded Sex Assigned at Not on file 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
--- OUTSIDE RECORDS SUMMARY | 2025-04-28 10:53 | XMS_ITS | Encounter Summary ---
Author Organization [facility] Address [address] [place] [address] Care Team Providers Care Compressor Mechanic Name Role Phone Yosi ALLEN MD, Lemuel Cueva Primary Care Provider + Encounter Details Date Type Department Care Team (Latest Contact Info) Description 11/25/1998 Outpatient Historical [facility] Antonio Combs NO ADDRESS ON FILE Thyrotoxicosis without mention of goiter or other cause, with mention of thyrotoxic crisis or storm (Primary Dx); Generalized anxiety disorder Social History Tobacco Use Types Packs/Day Years Used Date Smoking Tobacco: Never Assessed Comments Unknown Sex and Gender Information Value Date Recorded Sex Assigned at Not on file Legal Sex Female 6:30 AM FACIALIST Gender Identity Not on file Sexual Orientation Not on file documented as of this encounter Plan of Treatment Not on file documented as of this encounter Visit Diagnoses Diagnosis Thyrotoxicosis without mention of goiter or other cause, with mention of thyrotoxic crisis or storm- Primary Generalized anxiety disorder documented in this encounter Care Teams Compressor Mechanic Relationship Specialty Start Date End Date Lemuel Deluca II, MD [address] [place] [phone] PCP - General Family Practice 06/10/10 documented as of this encounter
--- OUTSIDE RECORDS SUMMARY | 2025-04-28 10:53 | XMS_ITS | Encounter Summary ---
Author Organization [facility] Address [address] [place] [address] Care Team Providers Care Practice Manager Name Role Phone Yosi ALLEN MD, Lemuel Cueva Primary Care Provider + Encounter Details Date Type Department Care Team (Latest Contact Info) Description 07/30/1999 Outpatient Historical [facility] Rheumatology- [facility] [place] [address] [place] [address] Seun Roper, DO [address] [facility] [address] [place] [address] Other and unspecified nonspecific immunological findings (Primary Dx) Social History Tobacco Use Types Packs/Day Years Used Date Smoking Tobacco: Never Assessed Comments Unknown Sex and Gender Information Value Date Recorded Sex Assigned at Not on file Legal Sex Female 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
--- OUTSIDE RECORDS SUMMARY | 2025-04-28 10:53 | XMS_ITS | Encounter Summary ---
Author Organization [facility] Address [address] [place] [address] Care Team Providers Care Marketing Ambassador Name Role Phone Yosi ALLEN MD, Lemuel Cueva Primary Care Provider + Encounter Details Date Type Department Care Team (Latest Contact Info) Description 11/14/1998 Outpatient Historical [facility] Endocrinology-[facility] [place] [address] [place] [phone] Ina Quintero MD [address] [place], [place] [address] Goiter, unspecified (Primary Dx) Social History Tobacco Use Types Packs/Day Years Used Date Smoking Tobacco: Never Assessed Comments Unknown Sex and Gender Information Value Date Recorded Sex Assigned at Not on file Legal Sex Female 6:30 AM OPERATIONS AND MAINTENANCE SPECIALIST Gender Identity Not on file Sexual Orientation Not on file documented as of this encounter Plan of Treatment Not on file documented as of this encounter Visit Diagnoses Diagnosis Goiter, unspecified- Primary documented in this encounter Care Teams Marketing Ambassador Relationship Specialty Start Date End Date Lemuel Deluca II, MD [address] [place] [address] PCP - General Family Practice 06/10/10 documented as of this encounter
--- OUTSIDE RECORDS SUMMARY | 2025-04-28 10:53 | XMS_ITS | Encounter Summary ---
Author Organization [facility] Address [address] [place] [address] Care Team Providers Care Floral Decorator Name Role Phone Yosi ALLEN MD, Lemuel Cueva Primary Care Provider + Encounter Details Date Type Department Care Team (Latest Contact Info) Description 09/24/1998 Outpatient Historical [facility] Antonio Combs NO ADDRESS ON FILE Goiter, unspecified (Primary Dx); Tachycardia, unspecified Social History Tobacco Use Types Packs/Day Years Used Date Smoking Tobacco: Never Assessed Comments Unknown Sex and Gender Information Value Date Recorded Sex Assigned at Not on file Legal Sex Female 6:30 AM COIL CONNECTOR REPAIRER Gender Identity Not on file Sexual Orientation Not on file documented as of this encounter Plan of Treatment Not on file documented as of this encounter Visit Diagnoses Diagnosis Goiter, unspecified- Primary Tachycardia, unspecified documented in this encounter Care Teams Floral Decorator Relationship Specialty Start Date End Date Lemuel Deluca II, MD [address] [place] [address] PCP - General Family Practice 06/10/10 documented as of this encounter
--- OUTSIDE RECORDS SUMMARY | 2025-04-28 10:53 | XMS_ITS | Encounter Summary ---
Author Organization [facility] Address [address] [place] [address] Care Team Providers Care Bull Wheel Worker Name Role Phone Yosi ALLEN MD, Lemuel Cueva Primary Care Provider + Encounter Details Date Type Department Care Team (Latest Contact Info) Description 01/20/2000 Outpatient Historical [facility] Antonio Combs NO ADDRESS ON FILE Other and unspecified hyperlipidemia (Primary Dx); Anxiety state, unspecified; Thyrotoxicosis without mention of goiter or other cause, without mention of thyrotoxic crisis or storm Social History Tobacco Use Types Packs/Day Years Used Date Smoking Tobacco: Never Assessed Comments Unknown Sex and Gender Information Value Date Recorded Sex Assigned at Not on file Legal Sex Female 6:30 AM COUNTER TACKER Gender Identity Not on file Sexual Orientation Not on file documented as of this encounter Plan of Treatment Not on file documented as of this encounter Visit Diagnoses Diagnosis Other and unspecified hyperlipidemia- Primary Anxiety state, unspecified Thyrotoxicosis without mention of goiter or other cause, without mention of thyrotoxic crisis or storm documented in this encounter Care Teams Bull Wheel Worker Relationship Specialty Start Date End Date Lemuel Deluca II, MD [address] [place] [address] PCP - General Family Practice 06/10/10 documented as of this encounter
--- OUTSIDE RECORDS SUMMARY | 2025-04-28 10:53 | XMS_ITS | Encounter Summary ---
Author Organization [facility] Address [address] [place] [address] Care Team Providers Care Appeals Referee Name Role Phone Yosi ALLEN MD, Lemuel Cueva Primary Care Provider + Encounter Details Date Type Department Care Team (Latest Contact Info) Description 05/10/2000 Outpatient Historical [facility] Antonio Combs NO ADDRESS ON FILE Other and unspecified hyperlipidemia (Primary Dx); Coronary atherosclerosis of unspecified type of vessel, circle or graft; Generalized anxiety disorder Social History Tobacco Use Types Packs/Day Years Used Date Smoking Tobacco: Never Assessed Comments Unknown Sex and Gender Information Value Date Recorded Sex Assigned at Not on file 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
--- OUTSIDE RECORDS SUMMARY | 2025-04-28 10:53 | XMS_ITS | Encounter Summary ---
Author Organization [facility] Address [address] [place] [address] Care Team Providers Care Peg Driver Name Role Phone Yosi ALLEN MD, Lemuel Cueva Primary Care Provider + Encounter Details Date Type Department Care Team (Latest Contact Info) Description 12/19/1998 Outpatient Historical [facility] Endocrinology-[facility] [place] [address] [place] [phone] Ina Quintero MD [address] [place], [place] [address] Thyrotoxicosis without mention of goiter or other cause, without mention of thyrotoxic crisis or storm (Primary Dx) Social History Tobacco Use Types Packs/Day Years Used Date Smoking Tobacco: Never Assessed Comments Unknown Sex and Gender Information Value Date Recorded Sex Assigned at Not on file 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
--- OUTSIDE RECORDS SUMMARY | 2025-04-28 10:53 | XMS_ITS | Encounter Summary ---
Author Organization [facility] Address [address] [place] [address] Care Team Providers Care Chief Technologist Name Role Phone Yosi ALLEN MD, Lemuel Cueva Primary Care Provider + Encounter Details Date Type Department Care Team (Latest Contact Info) Description 11/07/1999 Outpatient Historical [facility] Antonio Combs NO ADDRESS ON FILE Headache(784.0) (Primary Dx); Esophageal reflux Social History Tobacco Use Types Packs/Day Years Used Date Smoking Tobacco: Never Assessed Comments Unknown Sex and Gender Information Value Date Recorded Sex Assigned at Not on file 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
--- OUTSIDE RECORDS SUMMARY | 2025-04-28 10:53 | XMS_ITS | Encounter Summary ---
Author Organization [facility] Address [address] [place] [address] Care Team Providers Care Cargo Supervisor Name Role Phone Yosi ALLEN MD, Lemuel Cueva Primary Care Provider + Encounter Details Date Type Department Care Team (Latest Contact Info) Description 11/20/1998 Outpatient Historical [facility] [place] [address] [place] [address] Ina Quintero MD [address] [place], [place] [address] Goiter, unspecified (Primary Dx) Social History Tobacco Use Types Packs/Day Years Used Date Smoking Tobacco: Never Assessed Comments Unknown Sex and Gender Information Value Date Recorded Sex Assigned at Not on file 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
--- OUTSIDE RECORDS SUMMARY | 2025-04-28 10:53 | XMS_ITS | Encounter Summary ---
Author Organization [facility] Address [address] [place] [address] Care Team Providers Care Dry Placer Machine Operator Name Role Phone Yosi ALLEN MD, Lemuel Cueva Primary Care Provider + Encounter Details Date Type Department Care Team (Latest Contact Info) Description 02/05/2000 Outpatient Historical [facility] [place] [address] [place] [address] Benedicto Colin MD NO ADDRESS ON FILE Vaginitis and vulvovaginitis, unspecified (Primary Dx) Social History Tobacco Use Types Packs/Day Years Used Date Smoking Tobacco: Never Assessed Comments Unknown Sex and Gender Information Value Date Recorded Sex Assigned at Not on file 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
--- OUTSIDE RECORDS SUMMARY | 2025-04-28 10:53 | XMS_ITS | Encounter Summary ---
Author Organization [facility] Address [address] [place] [address] Care Team Providers Care Evp Sales Name Role Phone Yosi ALLEN MD, Lemuel Cueva Primary Care Provider + Encounter Details Date Type Department Care Team (Latest Contact Info) Description 06/25/1999 Outpatient Historical [facility] Antonio Combs NO ADDRESS ON FILE Migraine, unspecified, with intractable migraine, so stated, without mention of status migrainosus (Primary Dx); Unspecified sinusitis (chronic); Need for prophylactic vaccination against Streptococcus pneumoniae (pneumococcus) Social History Tobacco Use Types Packs/Day Years Used Date Smoking Tobacco: Never Assessed Comments Unknown Sex and Gender Information Value Date Recorded Sex Assigned at Not on file 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 Gender Identity Not on file Sexual Orientation Not on file documented as of this encounter Plan of Treatment Not on file documented as of this encounter Visit Diagnoses Diagnosis Migraine, unspecified, with intractable migraine, so stated, without mention of status migrainosus- Primary Unspecified sinusitis (chronic) Need for prophylactic vaccination against Streptococcus pneumoniae (pneumococcus) Need for prophylactic vaccination against streptococcus pneumoniae (pneumococcus) documented in this encounter Care Teams Evp Sales Relationship Specialty Start Date End Date Lemuel Deluca II, MD [address] [place] [address] PCP - General Family Practice 06/10/10 documented as of this encounter
--- OUTSIDE RECORDS SUMMARY | 2025-04-28 10:53 | XMS_ITS | Encounter Summary ---
Author Organization [facility] Address [address] [place] [address] Care Team Providers Care Hims Manager Name Role Phone Yosi ALLEN MD, Lemuel Cueva Primary Care Provider + Encounter Details Date Type Department Care Team (Latest Contact Info) Description 06/03/1999 Outpatient Historical [facility] Antonio Combs NO ADDRESS ON FILE Thyrotoxicosis without mention of goiter or other cause, without mention of thyrotoxic crisis or storm (Primary Dx); Irritable bowel syndrome Social History Tobacco Use Types Packs/Day Years Used Date Smoking Tobacco: Never Assessed Comments Unknown Sex and Gender Information Value Date Recorded Sex Assigned at Not on file 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
--- OUTSIDE RECORDS SUMMARY | 2025-04-28 10:53 | XMS_ITS | Encounter Summary ---
Author Organization [facility] Address [address] [place] [address] Care Team Providers Care Cup Trimming Machine Operator Name Role Phone Yosi ALLEN MD, Lemuel Cueva Primary Care Provider + Encounter Details Date Type Department Care Team (Latest Contact Info) Description 05/13/1999 Outpatient Historical [facility] Antonio Combs NO ADDRESS ON FILE Irritable bowel syndrome (Primary Dx); Nonspecific abnormal unspecified cardiovascular function study; Anxiety state, unspecified Social History Tobacco Use Types Packs/Day Years Used Date Smoking Tobacco: Never Assessed Comments Unknown Sex and Gender Information Value Date Recorded Sex Assigned at Not on file 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
--- OUTSIDE RECORDS SUMMARY | 2025-04-28 10:53 | XMS_ITS | Encounter Summary ---
Author Organization [facility] Address [address] [place] [address] Care Team Providers Care Second Floor Operator Name Role Phone Yosi ALLEN MD, Lemuel Cueva Primary Care Provider + Encounter Details Date Type Department Care Team (Latest Contact Info) Description 10/22/1998 Outpatient Historical [facility] Reggie Helm Jr., MD [address] [place] [address] Goiter, unspecified (Primary Dx) Social History Tobacco Use Types Packs/Day Years Used Date Smoking Tobacco: Never Assessed Comments Unknown Sex and Gender Information Value Date Recorded Sex Assigned at Not on file 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
--- OUTSIDE RECORDS SUMMARY | 2025-04-28 10:53 | XMS_ITS | Encounter Summary ---
Author Organization [facility] Address [address] [place] [address] Care Team Providers Care Trucking Manager Name Role Phone Yosi ALLEN MD, Lemuel Cueva Primary Care Provider + Encounter Details Date Type Department Care Team (Late st Contact Info) Description 06/12/1999 Outpatient Historical [facility] Ophthalmology 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
--- OUTSIDE RECORDS SUMMARY | 2025-04-28 10:53 | XMS_ITS | Clinical Summary ---
Author Organization [facility] Address [address] [place] [address] Phone Care Team Providers Care Inbound Sales Representative Name Role Phone Yosi ALLEN MD, Lemuel Cueva Primary Care Provider + Allergies Active Allergy Reactions Criticality Noted Date Comments Meprobamate Unknown 05/23/2010 Sumatriptan Succinate Other (See Comments),Headache Low 05/24/2010 Medications levothyroxine (SYNTHROID) 125 mcg Oral tablet Take 125 mcg by mouth daily. Active escitalopram (LEXAPRO) 10 mg Oral tablet Take 10 mg by mouth daily. Active diazepam (VALIUM) 10 mg Oral tablet Take 10 mg by mouth every 8 hours as needed. Active ferrous sulfate (FEOSOL) 325 mg (65 mg Iron) Oral tablet Take 1 Tab by mouth 3 times daily with meals. 90 Tab 0 05/26/2010 Active mupirocin calcium (BACTROBAN) 2 % Topical Crea Apply to affected area 2 times daily. 30 Gram 0 05/26/2010 Active minocycline (DYNACIN) 100 mg Oral Tab Take 1 Tab by mouth every 12 hours. 30 Tab 0 05/26/2010 Active rifampin (RIFADINE) 300 mg Oral capsule Take 1 Cap by mouth 2 times daily. 14 Cap 0 05/26/2010 Active HYDROcodone-dov taminophen (LORCET ) 10-650 mg Oral Tab Take 1 Tab by mouth every 4 hours as needed. 15 Tab 0 05/26/2010 Active hydrocortisone acetate (ANUCORT-HC) 25 mg Rectal Supp Insert 25 mg by rectum 2 times daily as needed. Active gabapentin (NEURONTIN) 300 mg Oral capsule Take 300 mg by mouth 3 times daily. 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 Gender Identity Not on file Sexual Orientation Not on file Last Filed Vital Signs Vital Sign Reading Time Taken Comments Blood Pressure 90/60 05/26/2010 8:20 AM CDT Pulse 74 05/26/2010 8:20 AM CDT Temperature 36.3 C (97.4 F) 05/26/2010 8:20 AM CDT Respiratory Rate 16 05/26/2010 8:20 AM CDT Oxygen Saturation 97% 05/26/2010 8:20 AM CDT Inhaled Oxygen Concentration - - Weight 52.2 kg (115 lb) 06/09/2010 1:43 PM CDT Height 157.5 cm (5' 2 ) 06/09/2010 1:43 PM CDT Body Mass Index 21.03 06/09/2010 1:43 PM CDT Plan of Treatment Health Maintenance Due Date Last Done Comments DTAP/TDAP/TD VACCINES (1 - Tdap) 1977 BREAST CANCER SCREENING 1998 FIT-DNA Q 3 years 12/14/2003 FIT/FOBT Q 1 year 12/14/2003 Flex Sig/CT Colonography Q 5 years 12/14/2003 PNEUMOCOCCAL VACCINE 50+ YEARS (1 of 1 - PCV) 12/14/19 09 ZOSTER VACCINE (1 of 2) 2008 COLORECTAL SCREENING 05/25/2020 05/25/2010 Colorectal Cancer Screening 05/25/2020 OSTEOPOROSIS SCREENING 12/14/2023 INFLUENZA VACCINE (#1) 2025 RSV VACCINE (60+ or ) (1 - 1-dose 75+ series) 2033 Advance Directives For more information, please contact: [phone] Documents on File Type Date Recorded Patient Combat Control Expl anation Advance Directive POA 05/26/2010 Advanc e Directive POA * Full Code (Latest Code Status on File) Date Activated Date Inactivated Comments 05/25/2010 9:21 AM 05/26/2010 6:04 PM * Full Code Date Activated Date Inactivated Comments 05/25/2010 9:19 AM 05/25/2010 9:21 AM * Full Code Date Activated Date Inactivated Comments 05/24/2010 4:21 AM 05/25/2010 9:19 AM Care Teams Inbound Sales Representative Relationship Specialty Start Date End Date Lemuel Deluca II, MD [address] [place] [address] PCP - General Family Practice 06/10/10
--- OUTSIDE RECORDS SUMMARY | 2025-04-28 10:53 | XMS_ITS | Encounter Summary ---
Author Organization [facility] Address [address] [place] [address] Care Team Providers Care Ground Worker Name Role Phone Yosi ALLEN MD, Lemuel Cueva Primary Care Provider + Encounter Details Date Type Department Care Team (Latest Contact Info) Description 06/11/1999 Outpatient Historical [facility] Antonio Combs NO ADDRESS ON FILE Generalized anxiety disorder (Primary Dx); Other abnormal clinical finding Social History Tobacco Use Types Packs/Day Years Used Date Smoking Tobacco: Never Assessed Comments Unknown Sex and Gender Information Value Date Recorded Sex Assigned at Not on file 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
--- OUTSIDE RECORDS SUMMARY | 2025-04-28 10:53 | XMS_ITS | Encounter Summary ---
Author Organization [facility] Address [address] [place] [address] Care Team Providers Care Filling Hauler Name Role Phone Yosi ALLEN MD, Lemuel Cueva Primary Care Provider + Encounter Details Date Type Department Care Team (Latest Contact Info) Description 04/21/2000 Outpatient Historical [facility] Antonio Combs NO ADDRESS ON FILE Headache(784.0) (Primary Dx); Generalized anxiety disorder Social History Tobacco Use Types Packs/Day Years Used Date Smoking Tobacco: Never Assessed Comments Unknown Sex and Gender Information Value Date Recorded Sex Assigned at Not on file 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
--- OUTSIDE RECORDS SUMMARY | 2025-04-28 10:53 | XMS_ITS | Encounter Summary ---
Author Organization [facility] Address [address] [place] [address] Care Team Providers Care Pocket Marker Name Role Phone Yosi ALLEN MD, Lemuel Cueva Primary Care Provider + Encounter Details Date Type Department Care Team (Latest Contact Info) Description 06/11/2000 Outpatient Historical [facility] Antonio Combs NO ADDRESS ON FILE Other and unspecified hyperlipidemia (Primary Dx); Unspecified hypothyroidism Social History Tobacco Use Types Packs/Day Years Used Date Smoking Tobacco: Never Assessed Comments Unknown Sex and Gender Information Value Date Recorded Sex Assigned at Not on file 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
[2025-04-28 10:57] VITALS: BMI 23.2
[2025-04-28] MEDS: iohexol 350 mg/mL 500 mL Btl (per mL) IV (11:00)
[2025-04-28 11:04] LABS: Hematocrit 36.3 % (36-47); Hemoglobin 12.40 g/dL (11.27-16.99); Mean Corpuscular HGB Conc 34.2 g/dL (30-55); Mean Corpuscular Hemoglobin 30.2 pg (27-33); Mean Corpuscular Volume 88.3 fl (85-98); Nucleated Red Blood Cells % 0 %; Platelet Count 218 10^3/cmm (157-399); Red Blood Count 4.11 10^6/uL (3.85-5.65); White Blood Count 7.65 10^3/uL (3.29-11.43)
[2025-04-28 11:11] VITALS: BP 164/78; PULSE 67; RESP 20; TEMP 36.5; O2SAT 100
[2025-04-28 11:18] LABS: INR 0.86 (0.8-1.2); Prothrombin Time 12.40 SECONDS (12.1-14.9)
[2025-04-28] MEDS: ondansetron 2 mg/ML SDV 2 mL 4 MG IVP (11:22)
[2025-04-28 11:24] VITALS: RESP 20
[2025-04-28] MEDS: morphine 4 mg/mL SDV 1 mL IVP (11:24)
[2025-04-28 11:25] LABS: Alanine Aminotransferase 22 U/L (0-33); Albumin Level 4.8 g/dL (3.5-5.2); Alkaline Phosphatase 120 U/L (35-105); Anion Gap 21.5 (5-19); Aspartate Amino Transferase 23 U/L (0-32); Blood Urea Nitrogen 13 mg/dL (8-23); Calcium 9.8 mg/dL (8.5-10.5); Carbon Dioxide 22 mmol/L (22-29); Chloride 98 mmol/L (98-107); Creatinine Clr Calc Pharmacy 53.3894; Globulin 2.6 g/dL (1.3-4.6); Glucose 117 mg/dL (65-115); Lipase 17 U/L (13-60); Osmolality Calculated 287 mOsm/kg (285-295); Potassium 3.5 mmol/L (3.5-5.1); Sodium 138 mmol/L (136-145); Total Protein 7.4 g/dL (6.6-8.7)
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
--- NOTE | 2025-04-28 11:34 | PC.NURSE ---
c-collar applied per verbal order
--- NOTE | 2025-04-28 11:52 | PC.NURSE ---
pt received 100mcg Fentanyl and 4mg zofran en route via EMS
--- NOTE | 2025-04-28 11:53 | PC.NURSE ---
report called to Karissa bergeron [facility]. report number
[2025-04-28 11:58] VITALS: PULSE 68; O2SAT 100
[2025-04-28] MEDS: HYDROmorphone 0.5 MG/0.5 ML INJ 1 MG IVP (12:09)
[2025-04-28 12:23] VITALS: BP 146/92; PULSE 62; O2SAT 99
== END 2025-04-28 12:27 | disposition short-term general hospital (02) ==
PROVIDERS: Emergency Provider Emergency Medicine; PCP Family Medicine
DX: S22.41XA Multiple fractures of ribs, right side, initial encounter for closed fracture (principal); S22.22XA Fracture of body of sternum, initial encounter for closed fracture; S32.029A Unspecified fracture of second lumbar vertebra, initial encounter for closed fracture; S32.039A Unspecified fracture of third lumbar vertebra, initial encounter for closed fracture; Z87.891 Personal history of nicotine dependence; I10 Essential (primary) hypertension; V89.2XXA Person injured in unspecified motor-vehicle accident, traffic, initial encounter
CPT/HCPCS: 51702; 71260; 74177; 80053; 83690; 85025; 85610; 96374; 96375; 99285; J1171; J2270; J2405

== ENCOUNTER → 2025-05-22 13:25 | Outpatient (BNVA) | payer MEDICARE, MEDICAID, OTHER, SELFPAY | PROVIDERS: PCP Family Medicine; Visit Provider Orthopaedic Surgery | DX: S22.41XA Multiple fractures of ribs, right side, initial encounter for closed fracture (principal); V89.2XXA Person injured in unspecified motor-vehicle accident, traffic, initial encounter; Z09 Encounter for follow-up examination after completed treatment for conditions other than malignant neoplasm | CPT/HCPCS: 99213 ==

== ENCOUNTER → 2025-06-11 10:42 | Outpatient (BNVA) | payer MEDICARE, MEDICAID, SELFPAY | PROVIDERS: PCP Family Medicine; Visit Provider Anesthesiology Pain Medicine | DX: M48.062 Spinal stenosis, lumbar region with neurogenic claudication (principal); M47.812 Spondylosis without myelopathy or radiculopathy, cervical region; M48.061 Spinal stenosis, lumbar region without neurogenic claudication; G89.29 Other chronic pain | CPT/HCPCS: 99214 ==

== ENCOUNTER 2025-06-20 10:44 | Outpatient (CLI) | payer MEDICARE, MEDICAID, SELFPAY ==
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
== END 2025-06-20 10:45 | disposition home or self-care (01) ==
LOC: RAD 10:49
PROVIDERS: PCP Family Medicine; Visit Provider Anesthesiology Pain Medicine
DX: M54.16 Radiculopathy, lumbar region (principal); M51.370 Other intervertebral disc degeneration, lumbosacral region with discogenic back pain only; Z98.890 Other specified postprocedural states; X58.XXXD Exposure to other specified factors, subsequent encounter; S22.080D Wedge compression fracture of T11-T12 vertebra, subsequent encounter for fracture with routine healing; M48.061 Spinal stenosis, lumbar region without neurogenic claudication; M51.26 Other intervertebral disc displacement, lumbar region
CPT/HCPCS: 72148

== ENCOUNTER → 2025-07-03 13:23 | Outpatient (BNVA) | payer MEDICARE, MEDICAID, SELFPAY | PROVIDERS: Visit Provider Orthopaedic Surgery | DX: M41.25 Other idiopathic scoliosis, thoracolumbar region (principal); M48.04 Spinal stenosis, thoracic region | CPT/HCPCS: 72072; 99213 ==